=== PATIENT | female | born 1990 | race Hispanic/Latino ===

== ENCOUNTER 2019-04-15 07:14 | Emergency (ER) | payer OTHER ==
[2019-04-15] MEDS ORDERED: NA CHLORIDE 0.9% 1,000 ML ONE (08:24)
[2019-04-15 08:44] LABS: Absolute Lymphocytes (CBC) 2.1 K/uL (0.7-4.9); Basophils % 0.5 % (0-1.3); Hematocrit 32.8 % (36.0-45.0); Lymphocytes % 24.3 % (15.3-44.8); MPV 9.5 fL (7.6-11.3)
[2019-04-15 08:59] LABS: ALT/SGPT 17 U/L (12-78); AST/SGOT 12 U/L (15-37); Albumin 2.8 g/dL (3.4-5.0); Alkaline Phosphatase 44 U/L (45-117); BUN Blood Urea Nitrogen 13 mg/dL (7-18); Bicarbonate 25 mmol/L (21-32); Bilirubin Direct 0.1 mg/dL (0-0.2); Bilirubin Total 0.3 mg/dL (0.2-1.0); Glucose Level 81 mg/dL (74-106); Lipase 133 U/L (73-393); Potassium 3.5 mmol/L (3.5-5.1); Protein, Total 6.2 g/dL (6.4-8.2); Sodium Level 140 mmol/L (136-145)
[2019-04-15 09:22] LABS: Urine Blood NEGATIVE (NEG); Urine Glucose NEGATIVE (NEG); Urine Protein NEGATIVE (NEG)
--- NOTE | 2019-04-15 09:56 | EDPHYS ---
Physician Documentation [facility] Name: Sari Sparks Age: 28 yrs Sex: Female : 1990 Arrival Date: 04/15/2019 Time: 07:16 Bed Ultrasound Private MD: STONEY Physician Dmitri Ryder HPI: 04/15 08:20 This 28 yrs old Female presents to ER via Ambulatory with complaints of juliano Epigastric Pain. 08:20 The patient presents with abdominal pain in the epigastric area, in the upper abdomen, juliano abdominal distention in the lower abdomen. Onset: The symptoms/episode began/occurred 1 day(s) ago. The patient presents to the emergency department with abdominal pain, of the epigastric area, right upper quadrant and left upper quadrant, nausea and vomiting, that started. The estimated gestational age is 21 weeks. BUTTON RIVETER: 08:20 2, Full Term 1, Premature 0, 0, Living 1 juliano Historical: - Allergies: 07:26 No Known Allergies; sg - Home Meds: 07:26 Vitamin Oral [Active]; sg - PMHx: 07:26 None; sg - PSHx: 07:26 None; sg - Immunization history:: Adult Immunizations up to date. - Social history:: Smoking status: Patient/guardian denies using tobacco. - Ebola Screening: : Patient negative for fever greater than or equal to 101.5 degrees Fahrenheit, and additional compatible Ebola Virus Disease symptoms Patient denies exposure to infectious person Patient denies travel to an Ebola-affected area in the 21 days before illness onset No symptoms or risks identified at this time. - Family history:: not pertinent. ROS: 08:20 Constitutional: Negative for fever, chills, and weight loss, Eyes: Negative for injury, juliano pain, redness, and discharge, ENT: Negative for injury, pain, and discharge, Neck: Negative for injury, pain, and swelling, Cardiovascular: Negative for chest pain, palpitations, and edema, Respiratory: Negative for shortness of breath, cough, wheezing, and pleuritic chest pain, Back: Negative for injury and pain, : Negative for injury, bleeding, discharge, and swelling, MS/Extremity: Negative for injury and deformity, Skin: Negative for injury, rash, and discoloration, Neuro: Negative for headache, weakness, numbness, tingling, and seizure, Psych: Negative for depression, anxiety, suicide ideation, homicidal ideation, and hallucinations, Allergy/Immunology: Negative for hives, rash, and allergies, Endocrine: Negative for neck swelling, polydipsia, polyuria, polyphagia, and marked weight changes, Hematologic/Lymphatic: Negative for swollen nodes, abnormal bleeding, and unusual bruising. 08:20 Abdomen/GI: Positive for abdominal pain, of the epigastric area, right upper quadrant and left upper quadrant. Exam: 08:20 Constitutional: This is a well developed, well nourished patient who is awake, alert, juliano and in no acute distress. Head/Face: Normocephalic, atraumatic. Eyes: Pupils equal round and reactive to light, extra-ocular motions intact. Lids and lashes normal. Conjunctiva and sclera are non-icteric and not injected. Cornea within normal limits. Periorbital areas with no swelling, redness, or edema. ENT: Nares patent. No nasal discharge, no septal abnormalities noted. Tympanic membranes are normal and external auditory canals are clear. Oropharynx with no redness, swelling, or masses, exudates, or evidence of obstruction, uvula midline. Mucous membranes moist. Neck: Trachea midline, no thyromegaly or masses palpated, and no cervical lymphadenopathy. Supple, full range of motion without nuchal rigidity, or vertebral point tenderness. No Meningismus. Chest/axilla: Normal chest wall appearance and motion. Nontender with no deformity. No lesions are appreciated. Cardiovascular: Regular rate and rhythm with a normal S1 and S2. No gallops, murmurs, or rubs. Normal PMI, no JVD. No pulse deficits. Respiratory: Lungs have equal breath sounds bilaterally, clear to auscultation and percussion. No rales, rhonchi or wheezes noted. No increased work of breathing, no retractions or nasal flaring. Back: No spinal tenderness. No costovertebral tenderness. Full range of motion. Female : Normal external genitalia. Skin: Warm, dry with normal turgor. Normal color with no rashes, no lesions, and no evidence of cellulitis. MS/ Extremity: Pulses equal, no cyanosis. Neurovascular intact. Full, normal range of motion. Neuro: Awake and alert, GCS 15, oriented to person, place, time, and situation. Cranial nerves II-XII grossly intact. Motor strength 5/5 in all extremities. Sensory grossly intact. Cerebellar exam normal. Normal gait. Psych: Awake, alert, with orientation to person, place and time. Behavior, mood, and affect are within normal limits. 08:20 Abdomen/GI: Inspection: distension, that is mild, gravid appearance, is noted, Bowel sounds: normal, Liver: no appreciated palpable abnormalities, Hernia: not appreciated. Vital Signs: 07:24 BP 102 / 63; Pulse 89; Resp 16; Temp 97.9(O); Pulse Ox 100% ; Pain 0/10; dh3 MDM: 07:38 Patient medically screened. [facility] 08:22 Data reviewed: vital signs, nurses notes, lab test result(s), radiologic studies, [facility] ultrasound. 04/15 08:19 Order name: Basic Metabolic Panel; Complete Time: 09:53 [facility] 04/15 08:19 Order name: CBC with Diff; Complete Time: 09:53 [facility] 04/15 08:19 Order name: Creatinine for Radiology; Complete Time: 09:53 [facility] 04/15 08:19 Order name: Hepatic Function; Complete Time: 09:53 [facility] 04/15 08:19 Order name: Lipase; Complete Time: 09:53 [facility] 04/15 08:19 Order name: Abo/rh Typing; Complete Time: 09:53 [facility] 04/15 08:19 Order name: IV Saline Lock; Complete Time: 08:33 [facility] 04/15 08:19 Order name: Labs collected and sent; Complete Time: 08:33 [facility] 04/15 08:19 Order name: US Abdomen Limited [facility] 04/15 08:41 Order name: Urine Dipstick--Ancillary (enter results); Complete Time: 09:53 04/15 08:41 Order name: Urine --Ancillary (enter results); Complete Time: 09:53 04/15 08:19 Order name: NPO; Complete Time: 08:20 [facility] 04/15 08:19 Order name: Urine Dipstick-Ancillary (obtain specimen); Complete Time: 08:41 [facility] 04/15 08:19 Order name: Urine Test (obtain specimen); Complete Time: 08:41 [facility] 04/15 08:19 Order name: FHT's; Complete Time: 10:45 [facility] Administered Medications: 09:00 Drug: NS 0.9% 1000 ml Route: IV; Rate: 1 bolus; Site: right antecubital; sg 10:24 Drug: Rocephin 1 grams Route: IV; Rate: per protocol; Site: right antecubital; sg Disposition: 04/15/19 09:55 Discharged to Home. Impression: Abdominal tenderness, Cholelithiasis, Urinary tract infection, site not specified. - Condition is Stable. - Discharge Instructions: Abdominal Pain, Adult, Abdominal Pain During , Biliary Colic, Adult, Urinary Tract Infection, Adult, Urinary Tract Infection, Adult, Ykut-za-Ymtk, Abdominal Pain, Adult, Qobx-nd-Xhlg, Abdominal Pain During , Hbyp-vw-Hxog, Second Trimester of , Aafb-jw-Yiyy. - Prescriptions for Vitamin 27- 0.8 mg Oral Tablet - take 1 tablet by ORAL route once daily; 30 tablet. Macrobid 100 mg Oral Capsule - take 1 capsule by ORAL route every 12 hours for 7 days; 14 capsule. - Medication Reconciliation Form, Thank You Letter, Antibiotic Education, Prescription Opioid Use form. - Follow up: Private Physician; When: 2 - 3 days; Reason: Recheck today's complaints, Continuance of care, Re-evaluation by your physician. Follow up: Vito Rothman; When: 2 - 3 days; Reason: Recheck today's complaints, Continuance of care, Re-evaluation by your physician. - Problem is new. - Symptoms have improved. Signatures: Dispatcher [employer] EDMS Alex Lr RN RN sg Anderson, Corey, MD MD cha Corrections: (The following items were deleted from the chart) 11:30 09:55 04/15/2019 09:55 Discharged to Home. Impression: Abdominal tenderness; sg Cholelithiasis; Urinary tract infection, site not specified. Condition is Stable. Discharge Instructions: Abdominal Pain, Adult, Abdominal Pain During , Biliary Colic, Adult, Abdominal Pain, Adult, Zxnn-ix-Dvpl, Abdominal Pain During , Brwn-uy-Prjm, Second Trimester of , Ybrj-so-Tatj. Prescriptions for Vitamin 27-0.8 mg Oral Tablet - take 1 tablet by ORAL route once daily; 30 tablet. and Forms are Medication Reconciliation Form, Thank You Letter, Antibiotic Education, Prescription Opioid Use. Follow up: Private Physician; When: 2 - 3 days; Reason: Recheck today's complaints, Continuance of care, Re-evaluation by your physician. Follow up: Vito Rothman; When: 2 - 3 days; Reason: Recheck today's complaints, Continuance of care, Re-evaluation by your physician. Problem is new. Symptoms have improved. juliano
--- NOTE | 2019-04-15 09:56 | ER ---
Nurse's Notes [facility] Name: Sari Sparks Age: 28 yrs Sex: Female : 1990 Arrival Date: 04/15/2019 Time: 07:16 Bed Ultrasound Private MD: Diagnosis: Abdominal tenderness;Cholelithiasis;Urinary tract infection, site not specified Presentation: 04/15 07:23 Presenting complaint: Patient states: Epigastric pain that radiates to the right upper sg back, reports pain began this morning, but has resolved as walking from ER lobby to exam room. pt denies urinary/vaginal symptoms at this time, reports is 21 weeks , reports nausea with the pain but both symptoms have resolved at this time. Transition of care: patient was not received from another setting of care. Onset of symptoms was April 15, 2019. Risk Assessment: Do you want to hurt yourself or someone else? Patient reports no desire to harm self or others. Initial Sepsis Screen: Does the patient meet any 2 criteria? No. Patient's initial sepsis screen is negative. Does the patient have a suspected source of infection? No. Patient's initial sepsis screen is negative. Care prior to arrival: None. 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 - Social history:: Smoking status: Patient/guardian denies using tobacco. - Ebola Screening: : Patient negative for fever greater than or equal to 101.5 degrees Fahrenheit, and additional compatible Ebola Virus Disease symptoms Patient denies exposure to infectious person Patient denies travel to an Ebola-affected area in the 21 days before illness onset No symptoms or risks identified at this time. - Family history:: not pertinent. Screenin:26 Abuse screen: Denies threats or abuse. Denies injuries from another. Nutritional sg screening: No deficits noted. Tuberculosis screening: No symptoms or risk factors identified. Never had TB. Fall Risk None identified. Assessment: 07:26 General: Appears in no apparent distress. well groomed, well developed, well nourished, sg Behavior is calm, cooperative, appropriate for age. Pain: Complains of pain in right mid back, right upper quadrant and left upper quadrant Pain currently is 0 out of 10 on a pain scale. at worst was 9 out of 10 on a pain scale. Quality of pain is described as aching, Pain began gradually, Is episodic, lasting 30 minutes. Neuro: Level of Consciousness is awake, alert, obeys commands, Oriented to person, place, time, Mine Car Mechanic are equal bilaterally Moves all extremities. Full function Gait is steady, Speech is normal, Facial symmetry appears normal, Pupils are PERRLA, Denies weakness blurred vision dizziness, difficulty swallowing, paresthesias numbness headache photophobia diplopia. Cardiovascular: Capillary refill is brisk in bilateral fingers Patient's skin is warm and dry. Chest pain is denied. Respiratory: Airway is patent Respiratory effort is even, unlabored, Respiratory pattern is regular, symmetrical. GI: Abdomen is round non-distended, Bowel sounds. GI: Reports nausea, tolerance of fluids, tolerance of food. : No signs and/or symptoms were reported regarding the genitourinary system. EENT: No signs and/or symptoms were reported regarding the EENT system. Derm: Skin is pink, warm \T\ dry. Musculoskeletal: Circulation, motion, and sensation intact. Range of motion: intact in all extremities, Swelling absent. Vital Signs: 07:24 BP 102 / 63; Pulse 89; Resp 16; Temp 97.9(O); Pulse Ox 100% ; Pain 0/10; dh3 ED Course: 07:16 Patient arrived in ED. as 07:19 Alex Lr, RN is Primary Nurse. sg 07:20 Mo Silva PA is PHCP. jmm 07:20 David Powers MD is Attending Physician. jmm 07:20 Awaiting ED provider evaluation. sg 07:24 Triage completed. sg 07:24 Arm band placed on. sg 07:43 Attending Physician role handed off by David Powers MD juliano 07:43 Dmitri Ryder MD is Attending Physician. juliano 07:52 Awaiting ED provider evaluation. sg 08:29 Initial lab(s) drawn, by me, sent to lab. Inserted saline lock: 22 gauge in right 3 antecubital area, using aseptic technique. Blood collected. 08:54 US Abdomen Limited In Process Unspecified. EDMS 09:55 Vito Rothman MD is Referral Physician. juliano 10:45 Awaiting: IV fluids and IV abx to finish infusing at this time. sg Administered Medications: 09:00 Drug: NS 0.9% 1000 ml Route: IV; Rate: 1 bolus; Site: right antecubital; sg 10:24 Drug: Rocephin 1 grams Route: IV; Rate: per protocol; Site: right antecubital; sg Outcome: :55 Discharge ordered by . juliano 11:30 Patient left the ED. sg Signatures: Dispatcher [employer] EDMS Alex Lr RN RN sg Anderson, Corey, MD MD cha Mickail, Joel, PA PA jmm Martinez, Amelia as Herrera, [place] [id number]
[2019-04-15] MEDS ORDERED: CEFTRIAXONE/SWI 1gm 1 GM/10 ML SYR ONE (10:22)
--- NOTE | 2019-04-15 11:13 | RAD REPORT ---
EXAM DESCRIPTION: US - Abdomen Exam Limited - 04/15/2019 8:53 am CLINICAL HISTORY: ABD PAIN COMPARISON: No comparisons FINDINGS: The gallbladder demonstrates multiple shadowing gallstones. No pericholecystic fluid or ga llbladder wall thickening. The common bile duct is normal measuring 4 mm. The liver demonstrates no findings of intrahepatic biliary dilatation. IMPRESSION: Cholelithiasis.
[2019-04-15 11:36] VITALS: BP 102/63; TEMP 97.9; O2SAT 100
== END 2019-04-15 11:30 | disposition home or self-care (01) ==
LOC: ER 07:14
DX: O23.42 Unspecified infection of urinary tract in pregnancy, second trimester (principal); K80.20 Calculus of gallbladder without cholecystitis without obstruction; Z3A.21 21 weeks gestation of pregnancy
CPT/HCPCS: 85025; 80048; 36415; 86900; 81025; 86901; 80076; 81003; 83690; 76705; 96374; 99284; J0696; J7030

== ENCOUNTER 2021-06-01 14:31 | Emergency (ER) | payer OTHER ==
--- OUTSIDE RECORDS SUMMARY | 2021-06-01 14:37 | XMS REPORT | Continuity of Care Document ---
:1990 Author Organization [facility] t Address [address] [place] [address] Dr. Gonzales [address] [place] [id number] Care Team Providers Name Role Phone CHERIE NAVA Attending Clinician Unavailable Alena Ledesma Attending Clinician Pete Salinas MD Attending Clinician Doctor Unassigned, Name Attending Clinician Unavailable Nerissa Green Attending Clinician Leo Morales MD Attending Clinician Popeye MEDELLIN Attending Clinician Unavailable Lab Attending Clinician Unavailable Nerissa Mcgovern Attending Clinician 2, [facility] Room Attending Clinician Unavailable Alia Palomino MD Attending Clinician Lab Attending Clinician Unavailable Pete Salinas MD Admitting Clinician Leo Morales MD Admitting Clinician Payers Payer Name Policy Type Policy Number Effective Date Expiration Date [facility] [id number] [address] [facility] MEDICAID 00:00:00 Advance Directives Directive Decision Effective Termination Comments Source Date Date Healthcare Agents on N/A [facility] Agent Medical RelationshipCommunicationSabina Branch [facility]end[facility] healthcare [phone] (Mobile) Problems Condition Condition Condition Status Onset Resolution Last Treating Co mments Source Name Details Category Date Date Treatment Clinician Date Other Other Disease Active 2019-0 Univers general general 4-16 ity of counseling [place] and advice and advice 00 Me dical for for Branch contracept contracept memo memo management management Disease Active 2019-0 U nivers care and care and 3-06 ity of examinatio examinatio 00:[place] n of n of 00 Medical lactating lactating Bran ch mother mother Disease Active 2019- Univers (spontaneo (spontaneo 2-15 it y of us vaginal us vaginal 00:00: [place] delivery) delivery) 00 [facility] Single Single Disease Active 2020- Univers liveborn liveborn 2-15 ity of infant 00:00: [place] [facility] Branch Labor and Labor and Disease Active 2019- Uni vers delivery delivery 2-14 ity of indication indication 00:00[place] for care for care 00 Medica l or or Branch interventi interventi on on Upper Upper Disease Active 2019- Univers respirator respirator 2-10 it y of y symptom y symptom [place] Obesity Obesity Disease Active 2019- Univers (BMI (BMI 2-03 ity of 30-39.9) 30-39.9) 00:00: [place] [facility] UTI UTI Disease Active 2019 Overview: Univer s (urinary (urinary 8 Nicole neg ity o f tract tract 00:00: [place] infection) infection) 00 Me dical during during [place] Supervisio Supervisio Disease Active 2019- U nivers n of n of 7-29 ity of high-risk high-risk 00:[place] [facility] Multiparit Multiparit Disease Active 2019-0 U nivers y y 7-29 ity of 00:00: [place] [facility] History of History of Disease Active 2019- Overview : Univers oligohydra oligohydra 7-29 In it y of mnios mnios 00:00: previous Medical Branch Obesity in Obesity in Disease Active 2019-0 U nivers 7-29 ity of 00:00: Medical Branch Nausea and Nausea and Disease Active 2019-0 U nivers vomiting vomiting 7-29 ity of during during 00:00: [place] 00 [facility] prior to prior to [place] 22 weeks 22 weeks gestation gestation Supervisio Supervisio Disease Active 2015-07 U nivers n of other n of other 0-13 it y of high risk high risk 00:[place] , , 00 Me dical antepartum antepartum Br anch , second , second trimester trimester Nonspecifi Nonspecifi Disease Active Overview : Univers c c 03-08 Indetermi ity of serologic serologic 00:00: regi [place] evidence evidence [facility] human of human Blot--[facility] immunodefi immunodefi t likely ciency ciency false virus virus positive, (HIV) (HIV) but needs repeat testing in 1mo, 3 mo, 32 weeks, and 1 month postpartu m. Viral Viral Disease Active Overview: Univer s disease disease 03-08 Had ity of complicati complicati 00:00: travel to [place] ng ng 00 [place] in Medical 1st Bran ch in first in first trimester trimester, trimester, . Denies antepartum antepartum all s/s of Zika virus with the exception of an occasiona l headache with no change in frequency , severity, duration or type since before or travel. Not persisten t and resolved spontaneo usly. Mosquito-b Mosquito-b Disease Active U nivers orne viral orne viral 03-08 it y of fever fever 00:00: [place] 00 Medical Branch History of History of Disease Active Overview : Univers foreign foreign 03-01 Travel to [facility] o f travel travel 00:00: [place] in [place] 00 1st Medical trimester Branch , needs serial scans Screening Screening Disease Active Uni vers examinatio examinatio 03-01 it y of n for n for 00:00: [place] pulmonary pulmonary 00 Medi kobe tuberculos tuberculos Br anch is is Allergies, Adverse Reactions, Alerts Allergy Allergy Status Severity Reaction(s) Onset Inactive Treating Comm ents Source Name Type Date Date Clinician NO KNOWN Drug Active Univers ALLERGIE Class ity of S [place] [facility] [place] Social History Social Habit Start Date Stop Date Quantity Comments Source ASSERTION 2018-11-30 [facility] 00:00:00 Medical Branch Sex Assigned At [facility] Medical Branch Alcohol intake 2019-10-17 2019-10-17 [facility] 00:00:00 00:00:00 Medical Branch Smoking Status Start Date Stop Date Source Never smoker [facility] acute hospital Branch Medications Ordered Filled Start Stop Current Ordering Indication Dosage Frequency Signature Comments Components Source Medication Medication Date Date Medication? Clinician (SIG) Name Name noe Yes [id number] 1{tbl} Take 1 Univers ne 0.35 mg 3-27 tablet by ity of tablet 00:00: mouth [place] 00 daily. Medical Branch norethindro 2020-0 Yes [id number] 1{tbl} Take 1 Univers ne 0.35 mg 3-27 tablet by ity of tablet 00:00: mouth [place] 00 daily. Medical Branch rho(D) 2019-0 Yes 300ug 300 mcg, Univer s immune 2-15 Intramuscu ity of globulin 04:12: lar, ONCE, [place] (RHOGAM) 07 For 1 Medical syringe 300 dose, Branch mcg Conditiona l, Routine ondansetron 2019-0 Yes 4mg 4 mg, Slow Univers (ZOFRAN 2-15 IV Push, ity of (PF)) 04:12: Q8HPRN, [place] injection 4 03 Starting Medi kobe mg Fri Branch 08/16/19 at 2211, Until Discontinu ed, Routine, Nausea and Vomiting (N/V) simethicone 2020-0 Yes 160mg 160 mg, Un matthew (GAS RELIEF 2-15 Oral, ity of (SIMETHICON 04:12: PC+HSPRN, [place] E)) 03 Starting Medical chewable Fri Branch tablet 160 08/16/19 at mg 2, Until Discontinu ed, Routine, Gas magnesium 2020-0 Yes 30mL 30 mL, Univer s hydroxide 2-15 Oral, ity of (MILK OF 04:12: QDAILYPRN, [place] MAGNESIA) 03 Starting Medica l 400 mg/5 mL Fri Branch suspension 08/16/19 at 30 mL 2211, Until Discontinu ed, Routine, Constipati on human 2019-0 Yes .5mL 0.5 mL, Univers papillomav 2-15 Intramuscu ity of vac,9-devi(P 04:12: lar, [place] F) 02 ONCE-PRIOR Medical (GARDASIL-9 TO Branch ) syringe DISCHARGE, 0.5 mL 1 dose, Starting 08/16/19 at 2, Until Discontinu ed, Routine, Give vaccine prior to discharge ibuprofen 2020-0 Yes 600mg 600 mg, Univ ers (IBU) 2-15 Oral, ity of tablet 600 04:12: Q6HPRN, [place] mg 02 Starting Medical Fri Branch 08/16/19 at 2, Until Discontinu ed, Routine, Pain (scale 4-6) acetaminoph 2020-0 Yes 650mg 650 mg, Un matthew en 2-15 Oral, ity of (TYLENOL) 04:12: Q6HPRN, [place] tablet 650 02 Starting Medic al mg Mon Branch 08/16/19 at 2212, Until Discontinu ed, Routine, Pain (scale 1-3) diphenhydrA 2020-0 Yes 25mg 25 mg, Univ ers MINE 2-15 Oral, ity of (BENADRYL) 04:12: Q6HPRN, [place] tablet 25 02 Starting Medica l mg Mon Branch 08/16/19 at 2212, Until Discontinu ed, Routine, Sleep, Itching diphenhydrA 2020-0 Yes 25mg 25 mg, IV U nivers MINE-0.9 % 2-15 Piggyback, ity of sod.chlr 04:12: Administer [place] (BENADRYL) 02 over 30 Medica l 25 mg/50 mL Minutes, Bran ch piggyback Q6HPRN, 25 mg Starting Mon08/16/19 at 2212, Until Discontinu ed, Routine, Itching docusate 2020-0 Yes 240mg 240 mg, Unive rs calcium 2-15 Oral, ity of (SURFAK) 04:12: QDAILYPRN, [place] capsule 240 02 Starting Medi kobe mg Mon [place] 08/16/19 at 2212, Until Discontinu ed, Routine, Constipati on benzocaine- 2020-0 Yes Topical, Un matthew menthol 2-15 PRN, ity of (DERMOPLAST 04:12: Starting [place] ) 20-0.5 % 02 Mon Medical topical 08/16/19 at Branch spray 2212, Until Discontinu ed, Routine, Perineum discomfort LR 1000 mL 2020-0 2020- No at 999 Univ ers + oxytocin 2-15 02-15 mL/hr, IV ity of 20 units IV 01:45: 01:05 Infusion, [place] Solution 00 :00 ONCE, 1 Medical dose, Mon [place] 08/16/19 at 1945, Routine acetaminoph 2020-0 Yes 650mg 650 mg, Un matthew en 2-15 Oral, ity of (TYLENOL) 00:44: Q6HPRN, [place] tablet 650 46 Starting Medic al mg Mon [place] 08/16/19 at 1844, Until Discontinu ed, Routine, Pain (scale 1-3), Temp > 38.5 C 2020-0 Yes [id number] 1{tbl} Take 1 Univers vitamin 2-15 tablet by ity of w/FA tablet 00:00: mouth [place] 00 daily. Medical Branch docusate 2020-0 Yes [id number] 240mg Take 1 U nivers calcium 240 2-15 capsule by it y of mg capsule 00:00: mouth once [place] 00 daily as Medical needed for Branch Constipati on. ferrous 2020-0 Yes [id number] 325mg Take 1 Un matthew sulfate 325 2-15 tablet by ity of mg (65 mg 00:00: mouth 2 [place] iron) 00 (two) Medical tablet times Branch daily. ibuprofen 2020-0 Yes [id number] 600mg Take 1 Univers 600 mg 2-15 tablet by ity of tablet 00:00: mouth [place] 00 every 6 Medical (six) Branch hours as needed (Pain). Take with food or milk. 2020-0 Yes [id number] 1{tbl} Take 1 Univers vitamin 2-15 tablet by ity of w/FA tablet 00:00: mouth [place] 00 daily. Medical Branch docusate 2020-0 Yes [id number] 240mg Take 1 U nivers calcium 240 2-15 capsule by it y of mg capsule 00:00: mouth once [place] 00 daily as Medical needed for Branch Constipati on. ferrous 2020-0 Yes [id number] 325mg Take 1 Un matthew sulfate 325 2-15 tablet by ity of mg (65 mg 00:00: mouth 2 [place] iron) 00 (two) Medical tablet times Branch daily. ibuprofen 2020-0 Yes [id number] 600mg Take 1 Univers 600 mg 2-15 tablet by ity of tablet 00:00: mouth [place] 00 every 6 Medical (six) Branch hours as needed (Pain). Take with food or milk. 2020-0 Yes [id number] 1{tbl} Take 1 Univers vitamin 2-15 tablet by ity of w/FA tablet 00:00: mouth [place] 00 daily. Medical Branch docusate 2020-0 Yes [id number] 240mg Take 1 U nivers calcium 240 2-15 capsule by it y of mg capsule 00:00: mouth once [place] 00 daily as Medical needed for Branch Constipati on. ferrous 2020-0 Yes [id number] 325mg Take 1 Un matthew sulfate 325 2-15 tablet by ity of mg (65 mg 00:00: mouth 2 [place] iron) 00 (two) Medical tablet times Branch daily. ibuprofen 2020-0 Yes [id number] 600mg Take 1 Univers 600 mg 2-15 tablet by ity of tablet 00:00: mouth [place] 00 every 6 Medical (six) Branch hours as needed (Pain). Take with food or milk. 2020-0 Yes [id number] 1{tbl} Take 1 Univers vitamin 2-15 tablet by ity of w/FA tablet 00:00: mouth [place] 00 daily. Medical Branch docusate 2020-0 Yes [id number] 240mg Take 1 U nivers calcium 240 2-15 capsule by it y of mg capsule 00:00: mouth once [place] 00 daily as Medical needed for Branch Constipati on. ferrous 2020-0 Yes [id number] 325mg Take 1 Un matthew sulfate 325 2-15 tablet by ity of mg (65 mg 00:00: mouth 2 [place] iron) 00 (two) Medical tablet times Branch daily. ibuprofen 2020-0 Yes [id number] 600mg Take 1 Univers 600 mg 2-15 tablet by ity of tablet 00:00: mouth [place] 00 every 6 Medical (six) Branch hours as needed (Pain). Take with food or milk. 2020-0 Yes [id number] 1{tbl} Take 1 Univers vitamin 2-15 tablet by ity of w/FA tablet 00:00: mouth [place] 00 daily. Medical Branch docusate 2020-0 Yes [id number] 240mg Take 1 U nivers calcium 240 2-15 capsule by it y of mg capsule 00:00: mouth once [place] 00 daily as Medical needed for Branch Constipati on. ferrous 2020-0 Yes [id number] 325mg Take 1 Un matthew sulfate 325 2-15 tablet by ity of mg (65 mg 00:00: mouth 2 [place] iron) 00 (two) Medical tablet times Branch daily. ibuprofen 2020-0 Yes [id number] 600mg Take 1 Univers 600 mg 2-15 tablet by ity of tablet 00:00: mouth [place] 00 every 6 Medical (six) Branch hours as needed (Pain). Take with food or milk. lactated 2019-0 2020- No 500mL at 999 Unive rs ringers IV 2-15 02-14 mL/hr, 500 it y of infusion 00:00: 23:14 mL, IV [place] 500 mL 00 :00 Infusion, Medical ONCE, 1 Branch dose, 08/16/19 at 1800, Routine FENTanyl PF 2020-0 2020- No 50ug 50 mcg, Un matthew (SUBLIMAZE 08-16 Slow IV ity o f (PF)) 23:45: 22:43 Push, [place] injection 00 :00 ONCE, 1 Medical 50 mcg dose, Fri Branch 08/16/19 at 1745, Routine LR 1000 mL 2020-0 Yes 2mU/min 2 Univ ers + oxytocin 2-14 tony-unit ity of 20 units IV 22:52: s/min (6 [place] Solution 49 mL/hr), at Medic al 6 mL/hr, Branch IV Infusion, TITRATE, Starting Mon08/16/19 at 1652, Until Discontinu ed, DIANE, Oxytocin Induction / Augmentati on of Labor. lactated 2020-0 Yes 500mL at 999 Univer s ringers IV 2-14 mL/hr, 500 ity of infusion 22:52: mL, IV [place] 500 mL 48 Infusion, Medical PRN - SEE Branch INSTRUCTIO NS, 1 dose, Starting 08/16/19 at 1652, Until Discontinu ed, Routine sodium 2020-0 2020- No 30mL 30 mL, Univers citrate-cit 08-16 Oral, ity of mone acid 22:52: 23:19 PRE-PROCED [place] (BICITRA) 48 :00 URE ONCE, Medic al 500-334 1 dose, Branch mg/5 mL Starting solution 30 Fri mL 08/16/19 at 1652, Until 08/16/19 at 1719, Routine, Surgery/Pr ocedure miSOPROStol 2020-0 2020- No 25ug 25 mcg, Un matthew (CYTOTEC) 08-16 Vaginal, ity o f tablet 25 15:30: 16:31 ONCE, 1 [place] mcg 00 :00 dose, Fri Medical 08/16/19 at Branch 0930, Routine D5W-LR IV 2020-0 Yes 1000mL at 125 Univ ers infusion 2-14 mL/hr, IV ity of 1,000 mL 13:45: Infusion, [place] 00 CONTINUOUS Medical , Starting Branch 08/16/19 at 0745, Until Discontinu ed, Routine sodium 2020-0 Yes 30mL 30 mL, Univers citrate-cit 2-14 Oral, ity of mone acid 13:38: PRE-PROCED [place] (BICITRA) 46 URE ONCE, Medic al 500-334 1 dose, Branch mg/5 mL Starting solution 30 Fri mL 08/16/19 at 0738, Until Discontinu ed, Routine, Surgery/Pr ocedure sodium 2020-0 Yes 30mL 30 mL, Univers citrate-cit 2-14 Oral, ity of mone acid 13:38: PRE-PROCED [place] (BICITRA) 46 URE ONCE, Medic al 500-334 1 dose, Branch mg/5 mL Starting solution 30 Fri mL 08/16/19 at 0738, Until Discontinu ed, Routine, Surgery/Pr ocedure lidocaine 2020-0 Yes 50mL 50 mL, Univer s 1% 2-14 Infiltrati ity of (XYLOCAINE) 13:38: on, PRN - [place] 10 mg/mL (1 46 SEE Medical %) INSTRUCTIO Branch injection NS, 50 mL Starting Mon08/16/19 at 0738, Until Discontinu ed, Routine, Local anesthesia , For laceration repair only as a local anesthetic as indicated. lidocaine 2020-0 Yes .3mL 0.3 mL, Unive rs 1% (PF) 2-14 Infiltrati ity of (XYLOCAINE) 13:38: on, PRN - [place] injection 46 SEE Medical 0.3 mL INSTRUCTIO Branch NS, Starting Mon08/16/19 at 0738, Until Discontinu ed, Routine, Local anesthesia , For IV line placement only as a local anesthetic . lactated 2020-0 Yes 500mL at 999 Univer s ringers IV 2-14 mL/hr, 500 ity of infusion 13:38: mL, IV [place] 500 mL 46 Infusion, Medical PRN - SEE Branch INSTRUCTIO NS, Starting Mon08/16/19 at 0738, Until Discontinu ed, Routine doxylamine- 2019-0 Yes [id number] 2{tbl} Take 2 Univers pyridoxine, 8-26 tablets by it y of vit B6, 00:00: mouth at [place] ([place]) 00 bedtime. Medic al 10-10 mg Branch per tablet doxylamine- 2019-0 Yes [id number] 2{tbl} Take 2 Univers pyridoxine, 8-26 tablets by it y of vit B6, 00:00: mouth at [place] [address] bedtime. Medic al 10-10 mg Branch per tablet doxylamine- 2019-0 Yes [id number] 2{tbl} Take 2 Univers pyridoxine, 8-26 tablets by it y of vit B6, 00:00: mouth at [place] [address] bedtime. Medic al 10-10 mg Branch per tablet doxylamine- 2019-0 Yes [id number] 2{tbl} Take 2 Univers pyridoxine, 8-26 tablets by it y of vit B6, 00:00: mouth at [place] [address] bedtime. Medic al 10-10 mg Branch per tablet doxylamine- 2019-0 Yes [id number] 2{tbl} Take 2 Univers pyridoxine, 8-26 tablets by it y of vit B6, 00:00: mouth at [place] [address] bedtime. Medic al 10-10 mg Branch per tablet doxylamine- 2019-0 Yes [id number] 2{tbl} Take 2 Univers pyridoxine, 8-26 tablets by it y of vit B6, 00:00: mouth at [place] [address] bedtime. Medic al 10-10 mg Branch per tablet doxylamine- 2019-0 Yes [id number] 2{tbl} Take 2 Univers pyridoxine, 8-26 tablets by it y of vit B6, 00:00: mouth at [place] [address] bedtime. Medic al 10-10 mg Branch per tablet doxylamine- 2019-0 Yes [id number] 2{tbl} Take 2 Univers pyridoxine, 8-26 tablets by it y of vit B6, 00:00: mouth at [place] [address] bedtime. Medic al 10-10 mg Branch per tablet doxylamine- 2019-0 Yes [id number] 2{tbl} Take 2 Univers pyridoxine, 8-26 tablets by it y of vit B6, 00:00: mouth at [facility] 00 bedtime. Medic al 10-10 mg Branch per tablet doxylamine- 2019-0 Yes [id number] 2{tbl} Take 2 Univers pyridoxine, 8-26 tablets by it y of vit B6, 00:00: mouth at [place] ([place]) 00 bedtime. Medic al 10-10 mg Branch per tablet doxylamine- Yes [id number] 2{tbl} Take 2 Univers pyridoxine, 8-26 tablets by it y of vit B6, 00:00: mouth at [place] ([facility]) 00 bedtime. Medic al 10-10 mg Branch per tablet doxylamine- 2020- No [id number] 2{tbl} Take 2 Univers pyridoxine, 8-26 02-15 tablets by i ty of vit B6, 00:00: 00:00 mouth at [place] ([facility]) 00 :00 bedtime. Medic al 10-10 mg Branch per tablet amoxicillin 2019- No [id number] 500mg Take 1 Univers 500 mg 8- 08-09 tablet by ity of tablet 00:00: 04:59 mouth 3 [place] 00 :00 (three) Medical times Branch daily for 7 days. amoxicillin 2019- No [id number] 500mg Take 1 Univers 500 mg 8- 08-09 tablet by ity of tablet 00:00: 04:59 mouth 3 [place] 00 :00 (three) Medical times Branch daily for 7 days. amoxicillin 2019- No [id number] 500mg Take 1 Univers 500 mg 8- 08-09 tablet by ity of tablet 00:00: 04:59 mouth 3 [place] 00 :00 (three) Medical times Branch daily for 7 days. amoxicillin 2019- No [id number] 500mg Take 1 Univers 500 mg 8- 08-09 tablet by ity of tablet 00:00: 04:59 mouth 3 [place] 00 :00 (three) Medical times Branch daily for 7 days. Yes [id number] 1{tbl} Take 1 U nivers 48-iron-fol 7-29 tablet by ity of ic acid-B6 00:00: mouth [place] ([facility] 00 daily. Medica l B-CALM, FE Branch GLUC,) 20 mg iron-1 mg -25 mg/25 mg TbSQ doxylamine- Yes [id number] 2{tbl} Take 2 Univers pyridoxine, 7-29 tablets by it y of vit B6, 00:00: mouth at [place] ([facility]) 00 bedtime. Medic al 10-10 mg Branch per tablet 2019-0 Yes [id number] 1{tbl} Take 1 U nivers 48-iron-fol 7-29 tablet by ity of ic acid-B6 00:00: mouth [place] ([facility] 00 daily. Medica l B-CALM, FE Branch GLUC,) 20 mg iron-1 mg -25 mg/25 mg TbSQ doxylamine- 2019-0 Yes [id number] 2{tbl} Take 2 Univers pyridoxine, 7-29 tablets by it y of vit B6, 00:00: mouth at [place] ([facility]) 00 bedtime. Medic al 10-10 mg Branch per tablet 2019-0 Yes [id number] 1{tbl} Take 1 U nivers 48-iron-fol 7-29 tablet by ity of ic acid-B6 00:00: mouth [place] ([facility] 00 daily. Medica l B-CALM, FE Branch GLUC,) 20 mg iron-1 mg -25 mg/25 mg TbSQ doxylamine- 2019- Yes [id number] 2{tbl} Take 2 Univers pyridoxine, 7-29 tablets by it y of vit B6, 00:00: mouth at [place] ([facility]) 00 bedtime. Medic al 10-10 mg Branch per tablet 2019-0 Yes [id number] 1{tbl} Take 1 U nivers 48-iron-fol 7-29 tablet by ity of ic acid-B6 00:00: mouth [place] ([facility] 00 daily. Medica l B-CALM, FE Branch GLUC,) 20 mg iron-1 mg -25 mg/25 mg TbSQ doxylamine- 2019-0 Yes [id number] 2{tbl} Take 2 Univers pyridoxine, 7-29 tablets by it y of vit B6, 00:00: mouth at [place] ([facility]) 00 bedtime. Medic al 10-10 mg Branch per tablet 2019-0 Yes [id number] 1{tbl} Take 1 U nivers 48-iron-fol 7-29 tablet by ity of ic acid-B6 00:00: mouth [place] ([facility] 00 daily. Medica l B-CALM, FE Branch GLUC,) 20 mg iron-1 mg -25 mg/25 mg TbSQ doxylamine- 2019-0 Yes [id number] 2{tbl} Take 2 Univers pyridoxine, 7-29 tablets by it y of vit B6, 00:00: mouth at [place] ([facility]) 00 bedtime. Medic al 10-10 mg Branch per tablet 2019-0 Yes [id number] 1{tbl} Take 1 U nivers 48-iron-fol 7-29 tablet by ity of ic acid-B6 00:00: mouth [place] ([facility] 00 daily. Medica l B-CALM, FE Branch GLUC,) 20 mg iron-1 mg -25 mg/25 mg TbSQ doxylamine- 20190 Yes [id number] 2{tbl} Take 2 Univers pyridoxine, 7-29 tablets by it y of vit B6, 00:00: mouth at [place] ([place]) 00 bedtime. Medic al 10-10 mg Branch per tablet 2019-0 Yes [id number] 1{tbl} Take 1 U nivers 48-iron-fol 7-29 tablet by ity of ic acid-B6 00:00: mouth [place] ([facility] 00 daily. Medica l B-CALM, FE Branch GLUC,) 20 mg iron-1 mg -25 mg/25 mg TbSQ doxylamine- 2019 Yes [id number] 2{tbl} Take 2 Univers pyridoxine, 7-29 tablets by it y of vit B6, 00:00: mouth at [place] ([facility]) 00 bedtime. Medic al 10-10 mg Branch per tablet 2019-0 Yes [id number] 1{tbl} Take 1 U nivers 48-iron-fol 7-29 tablet by ity of ic acid-B6 00:00: mouth [place] ([facility] 00 daily. Medica l B-CALM, FE Branch GLUC,) 20 mg iron-1 mg -25 mg/25 mg TbSQ doxylamine- 20190 Yes [id number] 2{tbl} Take 2 Univers pyridoxine, 7-29 tablets by it y of vit B6, 00:00: mouth at [place] ([facility]) 00 bedtime. Medic al 10-10 mg Branch per tablet 2019-0 Yes [id number] 1{tbl} Take 1 U nivers 48-iron-fol 7-29 tablet by ity of ic acid-B6 00:00: mouth [place] ([facility] 00 daily. Medica l B-CALM, FE Branch GLUC,) 20 mg iron-1 mg -25 mg/25 mg TbSQ doxylamine- Yes [id number] 2{tbl} Take 2 Univers pyridoxine, 7-29 tablets by it y of vit B6, 00:00: mouth at [place] ([facility]) 00 bedtime. Medic al 10-10 mg Branch per tablet Yes [id number] 1{tbl} Take 1 U nivers 48-iron-fol 7-29 tablet by ity of ic acid-B6 00:00: mouth [place] ([facility] 00 daily. Medica l B-CALM, FE Branch GLUC,) 20 mg iron-1 mg -25 mg/25 mg TbSQ doxylamine- Yes [id number] 2{tbl} Take 2 Univers pyridoxine, 7-29 tablets by it y of vit B6, 00:00: mouth at [place] ([facility]) 00 bedtime. Medic al 10-10 mg Branch per tablet Yes [id number] 1{tbl} Take 1 U nivers 48-iron-fol 7-29 tablet by ity of ic acid-B6 00:00: mouth [place] ([facility] 00 daily. Medica l B-CALM, FE Branch GLUC,) 20 mg iron-1 mg -25 mg/25 mg TbSQ doxylamine- Yes [id number] 2{tbl} Take 2 Univers pyridoxine, 7-29 tablets by it y of vit B6, 00:00: mouth at [place] ([facility]) 00 bedtime. Medic al 10-10 mg Branch per tablet Yes [id number] 1{tbl} Take 1 U nivers 48-iron-fol 7-29 tablet by ity of ic acid-B6 00:00: mouth [place] ([facility] 00 daily. Medica l B-CALM, FE Branch GLUC,) 20 mg iron-1 mg -25 mg/25 mg TbSQ doxylamine- Yes [id number] 2{tbl} Take 2 Univers pyridoxine, 7-29 tablets by it y of vit B6, 00:00: mouth at [place] ([facility]) 00 bedtime. Medic al 10-10 mg Branch per tablet 2018- Yes [id number] 1{tbl} Take 1 U nivers 48-iron-fol 7-29 tablet by ity of ic acid-B6 00:00: mouth [place] ([facility] 00 daily. Medica l B-CALM, FE Branch GLUC,) 20 mg iron-1 mg -25 mg/25 mg TbSQ doxylamine- 2019-0 Yes [id number] 2{tbl} Take 2 Univers pyridoxine, 7-29 tablets by it y of vit B6, 00:00: mouth at [place] [facility] 00 bedtime. Medic al 10-10 mg Branch per tablet 2019-0 Yes [id number] 1{tbl} Take 1 U nivers 48-iron-fol 7-29 tablet by ity of ic acid-B6 00:00: mouth [place] ([facility] 00 daily. Medica l B-CALM, FE Branch GLUC,) 20 mg iron-1 mg -25 mg/25 mg TbSQ doxylamine- 2019-0 Yes [id number] 2{tbl} Take 2 Univers pyridoxine, 7-29 tablets by it y of vit B6, 00:00: mouth at [place] ([facility]) 00 bedtime. Medic al 10-10 mg Branch per tablet 2019-0 Yes [id number] 1{tbl} Take 1 U nivers 48-iron-fol 7-29 tablet by ity of ic acid-B6 00:00: mouth [place] ([facility] 00 daily. Medica l B-CALM, FE Branch GLUC,) 20 mg iron-1 mg -25 mg/25 mg TbSQ doxylamine- 2019-0 Yes [id number] 2{tbl} Take 2 Univers pyridoxine, 7-29 tablets by it y of vit B6, 00:00: mouth at [place] [facility] 00 bedtime. Medic al 10-10 mg Branch per tablet 2019-0 Yes [id number] 1{tbl} Take 1 U nivers 48-iron-fol 7-29 tablet by ity of ic acid-B6 00:00: mouth [place] (CITRANATAL 00 daily. Medica l B-CALM, FE Branch GLUC,) 20 mg iron-1 mg -25 mg/25 mg TbSQ doxylamine- 2019-0 Yes [id number] 2{tbl} Take 2 Univers pyridoxine, 7-29 tablets by it y of vit B6, 00:00: mouth at [place] [facility] 00 bedtime. Medic al 10-10 mg Branch per tablet 2019-0 Yes [id number] 1{tbl} Take 1 U nivers 48-iron-fol 7-29 tablet by ity of ic acid-B6 00:00: mouth [place] (CITRANATAL 00 daily. Medica l B-CALM, FE Branch GLUC,) 20 mg iron-1 mg -25 mg/25 mg TbSQ doxylamine- 2019-0 Yes [id number] 2{tbl} Take 2 Univers pyridoxine, 7-29 tablets by it y of vit B6, 00:00: mouth at [place] (DICLEGIS) 00 bedtime. Medic al 10-10 mg Branch per tablet 2019-0 Yes [id number] 1{tbl} Take 1 U nivers 48-iron-fol 7-29 tablet by ity of ic acid-B6 00:00: mouth [place] (CITRANATAL 00 daily. Medica l B-CALM, FE Branch GLUC,) 20 mg iron-1 mg -25 mg/25 mg TbSQ doxylamine- 0 Yes [id number] 2{tbl} Take 2 Univers pyridoxine, 7-29 tablets by it y of vit B6, 00:00: mouth at [place] ([facility]) 00 bedtime. Medic al 10-10 mg Branch per tablet 2019-0 Yes [id number] 1{tbl} Take 1 U nivers 48-iron-fol 7-29 tablet by ity of ic acid-B6 00:00: mouth [place] (CITRANATAL 00 daily. Medica l B-CALM, FE Branch GLUC,) 20 mg iron-1 mg -25 mg/25 mg TbSQ doxylamine- 20190 Yes [id number] 2{tbl} Take 2 Univers pyridoxine, 7-29 tablets by it y of vit B6, 00:00: mouth at [place] ([facility]) 00 bedtime. Medic al 10-10 mg Branch per tablet 2019-0 2020- No [id number] 1{tbl} Take 1 Univers 48-iron-fol 7-29 02-15 tablet by it y of ic acid-B6 00:00: 00:00 mouth [place] (CITRANATAL 00 :00 daily. Medica l B-CALM, FE Branch GLUC,) 20 mg iron-1 mg -25 mg/25 mg TbSQ doxylamine- 0 2020- No [id number] 2{tbl} Take 2 Univers pyridoxine, 729 02-15 tablets by i ty of vit B6, 00:00: 00:00 mouth at [place] (DICLEGIS) 00 :00 bedtime. Medic al 10-10 mg Branch per tablet CITRANATAL 2015-07 Yes Univers ASSURE 35 0-14 ity of mg iron-1 00:00: [place] mg -50 00 Medical mg-300 mg Branch combo pack CITRANATAL 2015-07 Yes Univers ASSURE 35 0-14 ity of mg iron-1 00:00: [place] mg -50 00 Medical mg-300 mg Branch combo pack CITRANATAL 2015-07 Yes Univers ASSURE 35 0-14 ity of mg iron-1 00:00: [place] mg -50 00 Medical mg-300 mg Branch combo pack CITRANATAL 2015-07 Yes Univers ASSURE 35 0-14 ity of mg iron-1 00:00: [place] mg -50 00 Medical mg-300 mg Branch combo pack CITRANATAL 2015-07 Yes Univers ASSURE 35 0-14 ity of mg iron-1 00:00: [place] mg -50 00 Medical mg-300 mg Branch combo pack CITRANATAL 2015-07 Yes Univers ASSURE 35 0-14 ity of mg iron-1 00:00: [place] mg -50 00 Medical mg-300 mg Branch combo pack CITRANATAL 2015-07 Yes Univers ASSURE 35 0-14 ity of mg iron-1 00:00: [place] mg -50 00 Medical mg-300 mg Branch combo pack CITRANATAL 2015-07 Yes Univers ASSURE 35 0-14 ity of mg iron-1 00:00: [place] mg -50 00 Medical mg-300 mg Branch combo pack CITRANATAL 2015-07 Yes Univers ASSURE 35 0-14 ity of mg iron-1 00:00: [place] mg -50 00 Medical mg-300 mg Branch combo pack CITRANATAL 2015-07 Yes Univers ASSURE 35 0-14 ity of mg iron-1 00:00: [place] mg -50 00 Medical mg-300 mg Branch combo pack CITRANATAL 2015-07 Yes Univers ASSURE 35 0-14 ity of mg iron-1 00:00: [place] mg -50 00 Medical mg-300 mg Branch combo pack CITRANATAL 2015-07 Yes Univers ASSURE 35 0-14 ity of mg iron-1 00:00: [place] mg -50 00 Medical mg-300 mg Branch combo pack CITRANATAL 2015-07 Yes Univers ASSURE 35 0-14 ity of mg iron-1 00:00: [place] mg -50 00 Medical mg-300 mg Branch combo pack CITRANATAL 2015-07 Yes Univers ASSURE 35 0-14 ity of mg iron-1 00:00: [place] mg -50 00 Medical mg-300 mg Branch combo pack CITRANATAL 2015-07 2020- No Univer s ASSURE 35 0-14 -28 ity of mg iron-1 00:00: 00:00 [place] mg -50 00 :00 Medical mg-300 mg Branch combo pack CITRANATAL 2015-07 2020- No Univer s ASSURE 35 0-14 -28 ity of mg iron-1 00:00: 00:00 [place] mg -50 00 :00 Medical mg-300 mg Branch combo pack PNV without 2015-07 Yes 1{tbl} Take 1 Un matthew Ca-Iron 0-13 tablet by ity of PsCmplx-FA 00:00: mouth [place] (SELECT-OB, 00 daily. Medica l FOLIC Branch ACID,) 29-1 mg Chew PNV without 2015-07 Yes 1{tbl} Take 1 Un matthew Ca-Iron 0-13 tablet by ity of PsCmplx-FA 00:00: mouth [place] (SELECT-OB, 00 daily. Medica l FOLIC Branch ACID,) 29-1 mg Chew PNV without 2015-07 Yes 1{tbl} Take 1 Un matthew Ca-Iron 0-13 tablet by ity of PsCmplx-FA 00:00: mouth [place] (SELECT-OB, 00 daily. Medica l FOLIC Branch ACID,) 29-1 mg Chew PNV without 2015-07 Yes 1{tbl} Take 1 Un matthew Ca-Iron 0-13 tablet by ity of PsCmplx-FA 00:00: mouth [place] (SELECT-OB, 00 daily. Medica l FOLIC Branch ACID,) 29-1 mg Chew PNV without 2015-07 Yes 1{tbl} Take 1 Un matthew Ca-Iron 0-13 tablet by ity of PsCmplx-FA 00:00: mouth [place] (SELECT-OB, 00 daily. Medica l FOLIC Branch ACID,) 29-1 mg Chew PNV without 2015-07 Yes 1{tbl} Take 1 Un matthew Ca-Iron 0-13 tablet by ity of PsCmplx-FA 00:00: mouth [place] (SELECT-OB, 00 daily. Medica l FOLIC Branch ACID,) 29-1 mg Chew PNV without 2016- Yes 1{tbl} Take 1 Un matthew Ca-Iron 0-13 tablet by ity of PsCmplx-FA 00:00: mouth [place] (SELECT-OB, 00 daily. Medica l FOLIC Branch ACID,) 29-1 mg Chew PNV without 2016- Yes 1{tbl} Take 1 Un matthew Ca-Iron 0-13 tablet by ity of PsCmplx-FA 00:00: mouth [place] (SELECT-OB, 00 daily. Medica l FOLIC Branch ACID,) 29-1 mg Chew PNV without 2016- Yes 1{tbl} Take 1 Un matthew Ca-Iron 0-13 tablet by ity of PsCmplx-FA 00:00: mouth [place] (SELECT-OB, 00 daily. Medica l FOLIC Branch ACID,) 29-1 mg Chew PNV without 2016- Yes 1{tbl} Take 1 Un matthew Ca-Iron 0-13 tablet by ity of PsCmplx-FA 00:00: mouth [place] (SELECT-OB, 00 daily. Medica l FOLIC Branch ACID,) 29-1 mg Chew PNV without 2016- Yes 1{tbl} Take 1 Un matthew Ca-Iron 0-13 tablet by ity of PsCmplx-FA 00:00: mouth [place] (SELECT-OB, 00 daily. Medica l FOLIC Branch ACID,) 29-1 mg Chew PNV without 2016- Yes 1{tbl} Take 1 Un matthew Ca-Iron 0-13 tablet by ity of PsCmplx-FA 00:00: mouth [place] (SELECT-OB, 00 daily. Medica l FOLIC Branch ACID,) 29-1 mg Chew PNV without 2016- Yes 1{tbl} Take 1 Un matthew Ca-Iron 0-13 tablet by ity of PsCmplx-FA 00:00: mouth [place] (SELECT-OB, 00 daily. Medica l FOLIC Branch ACID,) 29-1 mg Chew PNV without 2016- Yes 1{tbl} Take 1 Un matthew Ca-Iron 0-13 tablet by ity of PsCmplx-FA 00:00: mouth [place] (SELECT-OB, 00 daily. Medica l FOLIC Branch ACID,) 29-1 mg Chew PNV without 2015-07 Yes 1{tbl} Take 1 Un matthew Ca-Iron 0-13 tablet by ity of PsCmplx-FA 00:00: mouth [place] (SELECT-OB, 00 daily. Medica l FOLIC Branch ACID,) 29-1 mg Chew PNV without 2015-07 Yes 1{tbl} Take 1 Un matthew Ca-Iron 0-13 tablet by ity of PsCmplx-FA 00:00: mouth [place] (SELECT-OB, 00 daily. Medica l FOLIC Branch ACID,) 29-1 mg Chew PNV without 2015-07 Yes 1{tbl} Take 1 Un matthew Ca-Iron 0-13 tablet by ity of PsCmplx-FA 00:00: mouth [place] (SELECT-OB, 00 daily. Medica l FOLIC Branch ACID,) 29-1 mg Chew PNV without 2015-07 Yes 1{tbl} Take 1 Un matthew Ca-Iron 0-13 tablet by ity of PsCmplx-FA 00:00: mouth [place] (SELECT-OB, 00 daily. Medica l FOLIC Branch ACID,) 29-1 mg Chew PNV without 2015-07 Yes 1{tbl} Take 1 Un matthew Ca-Iron 0-13 tablet by ity of PsCmplx-FA 00:00: mouth [place] (SELECT-OB, 00 daily. Medica l FOLIC Branch ACID,) 29-1 mg Chew PNV without 2015-07 Yes 1{tbl} Take 1 Un matthew Ca-Iron 0-13 tablet by ity of PsCmplx-FA 00:00: mouth [place] (SELECT-OB, 00 daily. Medica l FOLIC Branch ACID,) 29-1 mg Chew PNV without 2015-07 2020- No 1{tbl} Take 1 U nivers Ca-Iron 0-13 02-15 tablet by ity of PsCmplx-FA 00:00: 00:00 mouth [place] (SELECT-OB, 00 :00 daily. Medica l FOLIC Branch ACID,) 29-1 mg Chew doxylamine- Yes Take 2 Univ ers pyridoxine 9-27 tablets po ity of (DICLEGIS) 00:00: q hs, october [place] 10-10 mg 00 take an Medical per tablet additional Bra nch 1 tablet in the morning and 1 tablet in the afternoon prn nausea/vom iting doxylamine- 2016-0 Yes Take 2 Univ ers pyridoxine 9-27 tablets po ity of (DICLEGIS) 00:00: q hs, [place] 10-10 mg 00 take an Medical per tablet additional Bra nch 1 tablet in the morning and 1 tablet in the afternoon prn nausea/vom iting doxylamine- 2016-0 Yes Take 2 Univ ers pyridoxine 9-27 tablets po ity of (DICLEGIS) 00:00: q hs, october [place] 10-10 mg 00 take an Medical per tablet additional Bra nch 1 tablet in the morning and 1 tablet in the afternoon prn nausea/vom iting doxylamine- 2015-0 Yes Take 2 Univ ers pyridoxine 9-27 tablets po ity of (DICLEGIS) 00:00: q hs, october [place] 10-10 mg 00 take an Medical per tablet additional Bra nch 1 tablet in the morning and 1 tablet in the afternoon prn nausea/vom iting doxylamine- 2015-0 Yes Take 2 Univ ers pyridoxine 9-27 tablets po ity of (DICLEGIS) 00:00: q hs, october [place] 10-10 mg 00 take an Medical per tablet additional Bra nch 1 tablet in the morning and 1 tablet in the afternoon prn nausea/vom iting doxylamine- 2015-0 Yes Take 2 Univ ers pyridoxine 9-27 tablets po ity of (DICLEGIS) 00:00: q hs, october [place] 10-10 mg 00 take an Medical per tablet additional Bra nch 1 tablet in the morning and 1 tablet in the afternoon prn nausea/vom iting doxylamine- 2016-0 Yes Take 2 Univ ers pyridoxine 9-27 tablets po ity of (DICLEGIS) 00:00: q hs, october [place] 10-10 mg 00 take an Medical per tablet additional Bra nch 1 tablet in the morning and 1 tablet in the afternoon prn nausea/vom iting doxylamine- 2016-0 Yes Take 2 Univ ers pyridoxine 9-27 tablets po ity of (DICLEGIS) 00:00: q hs, october [place] 10-10 mg 00 take an Medical per tablet additional Bra nch 1 tablet in the morning and 1 tablet in the afternoon prn nausea/vom iting doxylamine- 2016-0 Yes Take 2 Univ ers pyridoxine 9-27 tablets po ity of (DICLEGIS) 00:00: q hs, october [place] 10-10 mg 00 take an Medical per tablet additional Bra nch 1 tablet in the morning and 1 tablet in the afternoon prn nausea/vom iting doxylamine- 2016-0 Yes Take 2 Univ ers pyridoxine 9-27 tablets po ity of (DICLEGIS) 00:00: q hs, october [place] 10-10 mg 00 take an Medical per tablet additional Bra nch 1 tablet in the morning and 1 tablet in the afternoon prn nausea/vom iting doxylamine- 2015-0 Yes Take 2 Univ ers pyridoxine 9-27 tablets po ity of (DICLEGIS) 00:00: q hs, october [place] 10-10 mg 00 take an Medical per tablet additional Bra nch 1 tablet in the morning and 1 tablet in the afternoon prn nausea/vom iting doxylamine- 2015-0 Yes Take 2 Univ ers pyridoxine 9-27 tablets po ity of (DICLEGIS) 00:00: q hs, october [place] 10-10 mg 00 take an Medical per tablet additional Bra nch 1 tablet in the morning and 1 tablet in the afternoon prn nausea/vom iting doxylamine- 2015-0 Yes Take 2 Univ ers pyridoxine 9-27 tablets po ity of (DICLEGIS) 00:00: q hs, october [place] 10-10 mg 00 take an Medical per tablet additional Bra nch 1 tablet in the morning and 1 tablet in the afternoon prn nausea/vom iting doxylamine- 2015-0 Yes Take 2 Univ ers pyridoxine 9-27 tablets po ity of (DICLEGIS) 00:00: q hs, october [place] 10-10 mg 00 take an Medical per tablet additional Bra nch 1 tablet in the morning and 1 tablet in the afternoon prn nausea/vom iting doxylamine- 2016-0 2020- No Take 2 Uni vers pyridoxine 9-27 -28 tablets po it y of (DICLEGIS) 00:00: 00:00 q hs, october [place] 10-10 mg 00 :00 take an Medical per tablet additional Bra nch 1 tablet in the morning and 1 tablet in the afternoon prn nausea/vom iting doxylamine- 2015- 2020- No Take 2 Uni vers pyridoxine 9-27 -28 tablets po it y of (DICLEGIS) 00:00: 00:00 q hs, october [place] 10-10 mg 00 :00 take an Medical per tablet additional Bra nch 1 tablet in the morning and 1 tablet in the afternoon prn nausea/vom iting proMETHazin 2016-0 Yes 25mg Take 1 Univ ers e 9-07 tablet by ity of (PHENERGAN) 00:00: mouth [place] 25 mg 00 every 4 Medical tablet (four) Branch hours as needed for Nausea and Vomiting (N/V). proMETHazin 2016-0 Yes 25mg Take 1 Univ ers e 9-07 tablet by ity of (PHENERGAN) 00:00: mouth [place] 25 mg 00 every 4 Medical tablet (four) Branch hours as needed for Nausea and Vomiting (N/V). proMETHazin 2016-0 Yes 25mg Take 1 Univ ers e 9-07 tablet by ity of (PHENERGAN) 00:00: mouth [place] 25 mg 00 every 4 Medical tablet (four) Branch hours as needed for Nausea and Vomiting (N/V). proMETHazin 2016-0 Yes 25mg Take 1 Univ ers e 9-07 tablet by ity of (PHENERGAN) 00:00: mouth [place] 25 mg 00 every 4 Medical tablet (four) Branch hours as needed for Nausea and Vomiting (N/V). proMETHazin 2016-0 Yes 25mg Take 1 Univ ers e 9-07 tablet by ity of (PHENERGAN) 00:00: mouth [place] 25 mg 00 every 4 Medical tablet (four) Branch hours as needed for Nausea and Vomiting (N/V). proMETHazin 2016-0 Yes 25mg Take 1 Univ ers e 9-07 tablet by ity of (PHENERGAN) 00:00: mouth [place] 25 mg 00 every 4 Medical tablet (four) Branch hours as needed for Nausea and Vomiting (N/V). proMETHazin 2016-0 Yes 25mg Take 1 Univ ers e 9-07 tablet by ity of (PHENERGAN) 00:00: mouth [place] 25 mg 00 every 4 Medical tablet (four) Branch hours as needed for Nausea and Vomiting (N/V). proMETHazin 2016-0 Yes 25mg Take 1 Univ ers e 9-07 tablet by ity of (PHENERGAN) 00:00: mouth [place] 25 mg 00 every 4 Medical tablet (four) Branch hours as needed for Nausea and Vomiting (N/V). proMETHazin 2016-0 Yes 25mg Take 1 Univ ers e 9-07 tablet by ity of (PHENERGAN) 00:00: mouth [place] 25 mg 00 every 4 Medical tablet (four) Branch hours as needed for Nausea and Vomiting (N/V). proMETHazin 2016-0 Yes 25mg Take 1 Univ ers e 9-07 tablet by ity of (PHENERGAN) 00:00: mouth [place] 25 mg 00 every 4 Medical tablet (four) Branch hours as needed for Nausea and Vomiting (N/V). proMETHazin 2016-0 Yes 25mg Take 1 Univ ers e 9-07 tablet by ity of (PHENERGAN) 00:00: mouth [place] 25 mg 00 every 4 Medical tablet (four) Branch hours as needed for Nausea and Vomiting (N/V). proMETHazin 2016-0 Yes 25mg Take 1 Univ ers e 9-07 tablet by ity of (PHENERGAN) 00:00: mouth [place] 25 mg 00 every 4 Medical tablet (four) Branch hours as needed for Nausea and Vomiting (N/V). proMETHazin 2016-0 Yes 25mg Take 1 Univ ers e 9-07 tablet by ity of (PHENERGAN) 00:00: mouth [place] 25 mg 00 every 4 Medical tablet (four) Branch hours as needed for Nausea and Vomiting (N/V). proMETHazin 2016-0 Yes 25mg Take 1 Univ ers e 9-07 tablet by ity of (PHENERGAN) 00:00: mouth [place] 25 mg 00 every 4 Medical tablet (four) Branch hours as needed for Nausea and Vomiting (N/V). proMETHazin 2016-0 Yes 25mg Take 1 Univ ers e 9-07 tablet by ity of (PHENERGAN) 00:00: mouth [place] 25 mg 00 every 4 Medical tablet (four) Branch hours as needed for Nausea and Vomiting (N/V). proMETHazin 2016-0 Yes 25mg Take 1 Univ ers e 9-07 tablet by ity of (PHENERGAN) 00:00: mouth [place] 25 mg 00 every 4 Medical tablet (four) Branch hours as needed for Nausea and Vomiting (N/V). proMETHazin 2016-0 Yes 25mg Take 1 Univ ers e 9-07 tablet by ity of (PHENERGAN) 00:00: mouth [place] 25 mg 00 every 4 Medical tablet (four) Branch hours as needed for Nausea and Vomiting (N/V). proMETHazin 2016-0 Yes 25mg Take 1 Univ ers e 9-07 tablet by ity of (PHENERGAN) 00:00: mouth [place] 25 mg 00 every 4 Medical tablet (four) Branch hours as needed for Nausea and Vomiting (N/V). proMETHazin 2016-0 Yes 25mg Take 1 Univ ers e 9-07 tablet by ity of (PHENERGAN) 00:00: mouth [place] 25 mg 00 every 4 Medical tablet (four) Branch hours as needed for Nausea and Vomiting (N/V). proMETHazin 2016-0 Yes 25mg Take 1 Univ ers e 9-07 tablet by ity of (PHENERGAN) 00:00: mouth [place] 25 mg 00 every 4 Medical tablet (four) Branch hours as needed for Nausea and Vomiting (N/V). proMETHazin 2016-0 2020- No 25mg Take 1 Uni vers e 9-07 02-15 tablet by ity of (PHENERGAN) 00:00: 00:[place] 25 mg 00 :00 every 4 Medical tablet (four) Branch hours as needed for Nausea and Vomiting (N/V). Immunizations Ordered Filled Immunization Date Status Comments [facility] Immunization Name Name Tdap 2019-06-03 Completed University of 00:00:00 [facility] Tdap 2019-06-03 Completed University of 00:00:00 [facility] Tdap 2019-06-03 Completed University of 00:00:00 [facility] Tdap 2019-06-03 Completed University of 00:00:00 [facility] Tdap 2019-06-03 Completed University of 00:00:00 [facility] Tdap 2019-06-03 Completed University of 00:00:00 [facility] Tdap 2019-06-03 Completed University of 00:00:00 [facility] Tdap 2019-06-03 Completed University of 00:00:00 [place] [facility] Tdap 2019-06-03 Completed University of 00:00:00 [place] [facility] Tdap 2019-06-03 Completed University of 00:00:00 [place] [facility] Tdap 2019-06-03 Completed University of 00:00:00 [place] [facility] Tdap 2019-06-03 Completed University of 00:00:00 [place] [facility] Tdap 2019-06-03 Completed University of 00:00:00 [facility] Influenza Virus 2019-05-14 Completed Universit y of Vaccine Quad .5 mL 00:00:00 [place] [facility] IM 6+ MO Branch Influenza Virus 2019-05-14 Completed Universit y of Vaccine [facility] .5 mL 00:00:00 [place] [facility] IM 6+ MO Branch Influenza Virus 2019-05-14 Completed Universit y of Vaccine [facility] .5 mL 00:00:00 [place] [facility] IM 6+ MO Branch Influenza Virus 2019-05-14 Completed Universit y of Vaccine [facility] .5 mL 00:00:00 [place] [facility] IM 6+ MO Branch Influenza Virus 2019-05-14 Completed Universit y of Vaccine [facility] .5 mL 00:00:00 [place] [facility] IM 6+ MO Branch Influenza Virus 2019-05-14 Completed Universit y of Vaccine [facility] .5 mL 00:00:00 [place] [facility] IM 6+ MO Branch Influenza Virus 2019-05-14 Completed Universit y of Vaccine [facility] .5 mL 00:00:00 [place] [facility] IM 6+ MO Branch Influenza Virus 2019-05-14 Completed Universit y of Vaccine [facility] .5 mL 00:00:00 [place] [facility] IM 6+ MO Branch Influenza Virus 2019-05-14 Completed Universit y of Vaccine Quad .5 mL 00:00:00 [place] [facility] IM 6+ MO Branch Influenza Virus 2019-05-14 Completed Universit y of Vaccine [facility] .5 mL 00:00:00 [place] [facility] IM 6+ MO Branch Influenza Virus 2019-05-14 Completed Universit y of Vaccine [facility] .5 mL 00:00:00 [place] [facility] IM 6+ MO Branch Influenza Virus 2019-05-14 Completed Universit y of Vaccine Quad .5 mL 00:00:00 [place] [facility] IM 6+ MO Branch Influenza Virus 2019-05-14 Completed Universit y of Vaccine Quad .5 mL 00:00:00 [place] [facility] IM 6+ MO Branch PPD (TB) 2016-03-01 Completed University of 00:00:00 [facility] PPD (TB) 2016-03-01 Completed University of 00:00: [facility] PPD (TB) 2016-03-01 Completed University of 00:00: [facility] PPD (TB) 2016-03-01 Completed University of 00:00: [facility] PPD (TB) 2016-03-01 Completed University of 00:00: [facility] PPD (TB) 2016-03-01 Completed University of 00:00: [facility] PPD (TB) 2016-03-01 Completed University of 00:00: [facility] PPD (TB) 2016-03-01 Completed University of 00:00: [facility] PPD (TB) 2016-03-01 Completed University of 00:00: [facility] PPD (TB) 2016-03-01 Completed University of 00:00:00 [facility] PPD (TB) 2016-03-01 Completed University of 00:00:00 [facility] PPD (TB) 2016-03-01 Completed University of 00:00:00 [facility] PPD (TB) 2016-03-01 Completed University of 00:00:00 [facility] PPD (TB) 2016-03-01 Completed University of 00:00:00 [facility] PPD (TB) 2016-03-01 Completed University of 00:00:00 [facility] PPD (TB) 2016-03-01 Completed University of 00:00:00 [facility] PPD (TB) 2016-03-01 Completed University of 00:00:00 [facility] PPD (TB) 2016-03-01 Completed University of 00:00:00 [facility] PPD (TB) 2016-03-01 Completed University of 00:00:00 [facility] PPD (TB) 2016-03-01 Completed University of 00:00:00 [facility] PPD (TB) 2016-03-01 Completed University of 00:00:00 [facility] PPD (TB) 2016-03-01 Completed University of 00:00:00 [facility] PPD (TB) 2016-03-01 Completed University of 00:00:00 [facility] PPD (TB) 2016-03-01 Completed University of 00:00:00 [facility] PPD (TB) 2016-03-01 Completed University of 00:00:00 [facility] Vital Signs Vital Name Observation Time Observation Value Comments Source Systolic blood 2019-09-06 19:27:00 109 mm[Hg] Univer sity of pressure [place] [facility] Diastolic blood 2019-09-06 19:27:00 68 mm[Hg] Unive rsity of pressure [facility] Heart rate 2019-09-06 19:27:00 78 /min Universi ty of [facility] Body temperature 2019-09-06 19:27:00 36.11 [place] Univ ersity of [facility] Respiratory rate 2019-09-06 19:27:00 16 /min Univ ersity of [facility] Body height 2019-09-06 19:27:00 170.2 cm Universi ty of [place] [facility] [place] Body weight 2019-09-06 19:27:00 96.871 kg Universi ty of [facility] BMI 2019-09-06 19:27:00 33.45 kg/m2 Universi ty of [facility] Systolic blood 2019-08-17 22:00:00 116 mm[Hg] Univer sity of pressure [facility] Diastolic blood 2019-08-17 22:00:00 71 mm[Hg] Unive rsity of pressure [facility] Heart rate 2019-08-17 22:00:00 72 /min Universi ty of [facility] Body temperature 2019-08-17 22:00:00 36.78 [place] Univ ersity of [facility] Respiratory rate 2019-08-17 22:00:00 18 /min Univ ersity of [facility] Oxygen saturation in 2019-08-17 22:00:00 98 /min University of Arterial blood by [facility] Pulse oximetry Branch Body height 2019-08-16 13:48:00 170.2 cm Universi ty of [place] [facility] [place] Body weight 2019-08-16 13:48:00 101.56 kg Universi ty of [place] [facility] BMI 2019-08-16 13:48:00 35.07 kg/m2 Universi ty of [facility] Systolic blood 2019-08-12 16:33:00 103 mm[Hg] Univer sity of pressure [facility] Diastolic blood 2019-08-12 16:33:00 63 mm[Hg] Unive rsity of pressure [facility] Heart rate 2019-08-12 16:33:00 84 /min Universi ty of [facility] Body temperature 2019-08-12 16:33:00 37.11 [place] Univ ersity of [place] [facility] Respiratory rate 2019-08-12 16:33:00 16 /min Univ ersity of [facility] Body height 2019-08-12 16:33:00 170.2 cm Universi ty of [facility] Body weight 2019-08-12 16:33:00 101.379 kg Universi ty of [facility] BMI 2019-08-12 16:33:00 35.01 kg/m2 Universi ty of [facility] Systolic blood 2019-08-06 17:07:00 111 mm[Hg] Univer sity of pressure [facility] Diastolic blood 2019-08-06 17:07:00 64 mm[Hg] Unive rsity of pressure [facility] Heart rate 2019-08-06 17:07:00 87 /min Universi ty of [facility] Body temperature 2019-08-06 17:07:00 36.33 [place] Univ ersity of [facility] Respiratory rate 2019-08-06 17:07:00 16 /min Univ ersity of [facility] Body height 2019-08-06 17:07:00 170.2 cm Universi ty of [facility] Body weight 2019-08-06 17:07:00 100.897 kg Universi ty of [facility] BMI 2019-08-06 17:07:00 34.84 kg/m2 Universi ty of [facility] Heart rate 2019-08-06 02:20:00 86 /min Universi ty of [facility] Oxygen saturation in 2019-08-06 02:20:00 100 /min University Arterial blood by [facility] Pulse oximetry Branch Systolic blood 2019-08-05 21:30:00 119 mm[Hg] Univer sity of pressure [facility] Diastolic blood 2019-08-05 21:30:00 61 mm[Hg] Unive rsity of pressure [facility] Body temperature 2019-08-05 21:30:00 36.78 [place] Univ ersity of [facility] Respiratory rate 2019-08-05 21:30:00 16 /min Univ ersity of [facility] Body height 2019-08-05 21:30:00 170.2 cm Universi ty of [facility] Body weight 2019-08-05 21:30:00 102.059 kg Universi ty of [facility] BMI 2019-08-05 21:30:00 35.24 kg/m2 Universi ty of [place] [facility] Systolic blood 2019-07-30 17:13:00 107 mm[Hg] Univer sity of [facility] Diastolic blood 2019-07-30 17:13:00 66 mm[Hg] Unive rsity of [facility] Heart rate 2019-07-30 17:13:00 62 /min [facility] Body temperature 2019-07-30 17:13:00 36.67 Leilani [facility] Respiratory rate 2019-07-30 17:13:00 16 /min [facility] Body height 2019-07-30 17:13:00 170.2 cm [facility] Body weight 2019-07-30 17:13:00 100.358 kg [facility] BMI 2019-07-30 17:13:00 34.65 kg/m2 [facility] Systolic blood 2019-07-16 17:01:00 113 mm[Hg] Univer sity of [facility] Diastolic blood 2019-07-16 17:01:00 68 mm[Hg] Unive rsity of [facility] Heart rate 2019-07-16 17:01:00 102 /min [facility] Body temperature 2019-07-16 17:01:00 36.22 Leilani [facility] Respiratory rate 2019-07-16 17:01:00 16 /min [facility] Body height 2019-07-16 17:01:00 170.2 cm [facility] Body weight 2019-07-16 17:01:00 99.701 kg [facility] BMI 2019-07-16 17:01:00 34.43 kg/m2 [facility] Systolic blood 2019-02-25 15:10:00 128 mm[Hg] Univer sity of [facility] Diastolic blood 2019-02-25 15:10:00 72 mm[Hg] Unive rsity of [facility] Heart rate 2019-02-25 15:10:00 70 /min [facility] Body temperature 2019-02-25 15:10:00 36.28 Leilani [facility] Respiratory rate 2019-02-25 15:10:00 16 /min [facility] Body height 2019-02-25 15:10:00 170.2 cm [facility] Body weight 2019-02-25 15:10:00 87.601 kg [facility] BMI 2019-02-25 15:10:00 30.25 kg/m2 Universi ty [facility] Systolic blood 2019-01-28 14:00:00 108 mm[Hg] Univer sity of pressure [facility] Diastolic blood 2019-01-28 14:00:00 68 mm[Hg] Unive rsity of pressure [facility] Heart rate 2019-01-28 14:00:00 87 /min Universi ty [facility] Body temperature 2019-01-28 14:00:[address] [facility] Respiratory rate 2019-01-28 14:00:00 16 /min [facility] height 2019-01-28 14:00:00 170.2 cm [facility] Body weight 2019-01-28 14:00:00 92.987 kg Universi ty [facility] BMI 2019-01-28 14:00:00 32.11 kg/m2 Universi ty [facility] Procedures Procedure Date / Time Performing Clinician Source Performed CBC WITH DIFFERENTIAL 2019-08-17 10:27:00 Na Reaves [facility] HEPATITIS B SURFACE 2019-08-16 14:54:00 Haresh Hilary [facility] ANTIGEN [facility] GALV ONLY - SYPHILIS 2019-08-16 14:54:00 [facility] IGG/IGM [facility] HB ABO GROUPING 2019-08-16 14:52:00 [facility] o f [facility] RHO (D) IMMUNE GLOBULIN 2019-08-16 14:52:00 Na Reaves [facility] HOSPITAL ADMISSION 2019-08-16 06:01:00 Doctor Unassigned, No Uni versity of [facility] POCT RAPID STREP SCREEN 2019-08-12 17:30:00 Oskar Bernard [facility] FOR GROUP A Medical Branch POCT URINALYSIS 2019-08-12 16:36:00 Cherie Nava [facility] POCT URINALYSIS GLUCOSE 2019-08-06 17:09:00 [facility] PROTEIN [facility] US BIOPHYSICAL 2019-08-05 23:43:08 Ken Morales [facility] PRO[facility] NOTICE OF PRIVACY 2019-08-05 21:13:07 Doctor Unassigned, No [facility] CONSENT/REFUSAL FOR 2019-08-05 21:12:47 Doctor Unassigned, No [facility] ASSIGNMENT OF BENEFITS 2019-08-05 21:12:31 Doctor Unassigned, No [facility] POCT URINALYSIS 2019-07-30 17:32:00 Cherie Nava [facility] POCT URINALYSIS 2019-02-25 15:11:00 Cherie Nava [facility] CBC WITH DIFFERENTIAL 2019-01-28 14:59:00 [facility]IS B SURFACE 2019-01-28 14:59:00 [facility]rie [facility]ava [facility] ANTIGEN [facility] HCV ANTIBODY 2019-01-28 14:59:00 Cherie Nava [facility] WORKUP, BLOOD 2019-01-28 14:59:00 Cherie Nava [facility] HIV 1/2 AG-AB WITH 2019-01-28 14:59:00 Cherie Nava Univ [facility] REFLEX [facility] GALV ONLY - SYPHILIS 2019-01-28 14:59:00 [facility] IGG/IGM [facility] POCT URINALYSIS W/O 2019-01-28 14:05:00 [facility]rie [facility] [place] SPECIFIC GRAVITY [facility] POCT TEST 2019-01-28 14:02:00 Cherie [facility] NOTICE OF PRIVACY 2019-01-28 13:24:57 Doctor Unassigned, No [facility] Hospital Encounters Start End Encounter Admission Attending Care Care Encounter Source Date/Time Date/Time Type Type Clinicians Facility Department ID 2019-12-31 2019-12-31 Outpatient R AKINSIPE, [facility] [id number] Univers 13:15:00 13:15:00 CHERIE itjohn santos [facility] 2019-12-31 2019-12-31 Outpatient R AKINSIPE, [facility] [id number] Univers 13:15:00 13:15:00 CHERIE itjohn o [facility] 2019-12-18 2019-12-18 Outpatient R AKINSIPE, [facility] [id number] Univers 09:00:00 09:00:00 CHERIE [id number] [facility] 2019-10-17 2019-10-17 [facility]ici [facility] [id number] Univers 07:59:47 10:35:47 ne Visit Cherie C GROUP HOME COUNSELOR [id number] ity of REGIONAL [id number] [place] as MATERNAL [phone] [facility] ical & CHILD [address] [place] [address] 2019-10-17 2019-10-17 Outpatient R AKINSIPE, [facility] [id number] Univers 10:30:00 10:30:00 CHERIE [id number] itjohn [facility] 2019-10-17 2019-10-17 Outpatient R AKINSIPE, [facility] [id number] Univers 10:30:00 10:30:00 [facility]ERIE [facility] 2019-09-27 2019-09-27 Telemedici [facility] [id number] Univers 11:57:47 14:10:04 ne Visit Cherie C GROUP HOME COUNSELOR [id number] ity of REGIONAL [id number] [place] as MATERNAL [phone] [facility] [address] [place] [address] 2019-09-27 2019-09-27 Outpatient R AKINSIPE, [facility] [id number] Univers 13:15:00 13:15:00 CHERIE [id number] armandojohn o [facility] 2019-09-27 2019-09-27 Outpatient R AKINSIPE, [facility] [id number] Univers 13:15:00 13:15:00 CHERIE ity o f [facility] 2019-09-06 2019-09-06 [facility] [id number] Univers 13:14:24 13:49:35 Cherie C GROUP HOME COUNSELOR [id number] ity of Visit REGIONAL [id number] [place] MATERNAL [phone] [facility] ical & CHILD [address] [place] [address] 2019-09-06 2019-09-06 Outpatient R JORDANJOHN, [facility] [id number] Univers 12:45:00 12:45:00 CHERIE ity o f [facility] 2019-08-16 2019-08-17 Hospital Pete HUNT 1.2.840.114 [id number] Univers 06:56:00 20:54:00 Encounter Maurice CHAVEZ [id number] ity of , [facility] [id number] [place] [phone] [facility] [address] 2019-08-16 2019-08-16 Orders Doctor MARILEE 1.2.840.114 [id number] Univers 00:00:00 00:00:00 Only Unassigned, SCOTT [id number] ity of [place] [facility] [id number] [place] as [phone] [facility] [address] 2019-08-12 2019-08-12 Routine [facility] 1.2.840.114 [id number] Univers 09:54:37 11:10:34 Roshunda R GROUP HOME COUNSELOR [id number] ity of Visit [facility] [id number] [place] as MATERNAL [phone] [facility] [address] [place] [address] 2019-08-06 2019-08-06 Routine [facility] 1.2.840.114 [id number] Univers 10:43:38 11:10:34 Roshunda R GROUP HOME COUNSELOR [id number] ity of Visit [facility] [id number] [place] as MATERNAL [phone] [facility] & CHILD [address] [place] [address] 2019-08-05 2019-08-05 Hospital Ken Morales [facility] 1.2.840.114 [id number] Univers 15:09:00 20:32:00 Encounter Leo [place] [id number] ity of [place] [phone] [facility] [address] 2019-08-05 2019-08-05 Nurse MARILEE Nye 1.2.840.114 [id number] Univers 00:00:00 00:00:00 Triage Jumana CHAVEZ [id number] ity of [facility] 4.2.7.2.686 [place] [phone] [facility] [address] 2019-07-30 2019-07-30 [facility] 1.2.840.114 [id number] Univers 10:49:06 11:37:23 Roshunda R GROUP HOME COUNSELOR 350.1.13.10 ity of Visit [facility] [id number] [place] MATERNAL [phone] [facility] ical & CHILD [address] [place] [address] 2019-07-16 2019-07-16 Routine [facility] 1.2.840.114 [id number] Univers 10:45:29 11:23:55 Roshunda R GROUP HOME COUNSELOR [id number] ity of Visit [facility] [id number] [place] MATERNAL [phone] [facility] ical & CHILD [address] [place] [address] 2019-02-25 2019-02-25 Routine Luis AntonioalishajohnRE[facility]IL[facility] [id number] Univers 09:52:05 10:47:27 Cherie C GROUP HOME COUNSELOR [id number] ity of Visit [facility] [id number] [place] as MATERNAL [phone] [facility] ical & CHILD [address] [place] [address] 2019-02-08 2019-02-08 Quality Lab Technician Lab, [facility] UNIVERSIT 1.2.84 0.114 [id number] Univers 12:31:45 12:45:41 [facility] [id number] ity of CL[place] [id number] [facility] [address] 2019-02-08 2019-02-08 Quality Lab Technician 2, [facility] Us Room UNIVERSIT 1 .2.840.114 [id number] Univers 11:08:56 11:53:56 Visit Zenobia Palomino [facility] 350.1.1 3.10 ity of Shaniqua Sergey Multani [facility] 4.2.7.2.686 [place] [phone] [facility] [address] 2019-02-04 2019-02-04 Telephone Luis [facility]john[facility] 1.2.840.114 [id number] Univers 00:00:00 00:00:00 Cherie C GROUP HOME COUNSELOR [id number] ity of [facility] [id number] [place] as MATERNAL [phone] Med ical & CHILD [address] [place] [address] 2019-01-31 2019-01-31 Telephone Elijah [facility] 1.2.840.114 [id number] Univers 00:00:00 00:00:00 Cherie C GROUP HOME COUNSELOR [id number] ity of [facility] 4.2.7.2.686 [place] as MATERNAL [phone] Med ical & CHILD [address] [place] [address] 2019-01-31 2019-01-31 Telephone Elijah [facility] 1.2.840.114 [id number] Univers 00:00:00 00:00:00 Cherie C GROUP HOME COUNSELOR [id number] ity of [facility] 4.2.7.2.686 [place] as MATERNAL [phone] [facility] ical & CHILD [address] [place] [address] 2019-01-30 2019-01-30 Quality Lab Technician Lab, Ang-Rm[facility] 1.2.840. 114 [id number] [facility] 12:57:36 13:08:19 Visit Geoffrey Navailola C GROUP HOME COUNSELOR 350.1.13. 10 ity of [facility] [id number] [place] as MATERNAL [phone] [facility] ical & CHILD [address] [place] [address] 2019-01-28 2019-01-28 Initial Luis [facility] 1.2.128.808 [id number] Univers 08:36:22 09:56:43 Cherie C GROUP HOME COUNSELOR [id number] ity of Visit [facility] [id number] [place] as MATERNAL [phone] Med ical & CHILD [address] [place] [address] 2019-01-28 2019-01-28 Orders Doctor MARILEE 1.2.840.114 [id number] Univers 00:00:00 00:00:00 Only Unassigned, SCOTT 350.1.13.10 ity of [place] [facility] 4.2.7.2.686 [place] as [phone] [address] Results Test Description Test Time Test Comments Results Result Comments Source GALV ONLY - [place] IGG/IGM 2019-08-17 16:46:00 Test Item Value Reference Range Interpretation Comme nts Syphilis IgG/IgM (test code = Non-reactive Non-reactive 59956-8) THAO (test code = THAO) Non-reactive - No serologic evidence of T. pallidum infection. Cannot exclude incubating or early syphilis. Submit a second specimen in 2-4 weeks if syphilis is clinically suspected. Equivocal - Further testing to follow. Reactive - Further testing to follow. Lab Interpretation (test code = Normal 04075-6) [facility] WITH [id number] 10:58:00 Test Item Value Reference Range Interpretation Comments WBC (test code = See_Comment H [Automated 1690-2) message] The sy stem which generated this result transmitted reference range : 4.30 - 11.10 10*3/?L. The reference range was not used to interpret this result as normal/abnormal . RBC (test code = See_Comment L [Automated 499-8) message] The sy stem which generated this result transmitted reference range : 3.93 - 5.25 10*6/?L. The reference range was not used to interpret this result as normal/abnormal . HGB (test code = 11.8 g/dL 11.6-15 718-7) HCT (test code = 35.6 % 35.7-45.2 L 4544-3) MCV (test code = 92.2 fL 80.6-95.5 787-2) MCH (test code = 30.6 pg 25.9-32.8 785-6) MCHC (test code = 33.1 g/dL 31.6-35.1 786-4) RDW-SD (test code = 42.7 fL 39-49.9 55218-4) RDW-CV (test code = 12.9 % 12-15.5 788-0) PLT (test code = See_Comment L [Automated 777-3) message] The sy stem which generated this result transmitted reference range : 166 - 358 10*3/ ?L. The reference r estefanía was not used to interpret this result as normal/abnormal . MPV (test code = 11.3 fL 9.5-12.9 53696-5) NRBC/100 WBC (test See_Comment [Automat ed code = [id number]) message] The system which generated this result transmitted reference range : 0.0 - 10.0 /100 WBCs. The refer ence range was not u sed to interpret th is result as normal/abnormal . NRBC x10^3 (test code <0.01 See_Comment [Auto mated = 7323442959) message] The s ystem which generated this result transmitted reference range : 10*3/?L. The reference range was not used to interpret this result as normal/abnormal . GRAN MAT (NEUT) % 72.6 % (test code = 770-8) IMM GRAN % (test code 0.30 % = 2137509556) LYMPH % (test code = 19.9 % 736-9) MONO % (test code = 6.6 % 5905-5) EOS % (test code = 0.4 % 713-8) BASO % (test code = 0.2 % 706-2) GRAN MAT x10^3(ANC) 8.27 10*3/uL 1.88-7.09 H (test code = 0663049489) IMM GRAN x10^3 (test 0.03 10*3/uL 0-0.06 code = 9448093830) LYMPH x10^3 (test code 2.27 10*3/uL 1.32-3.29 = 731-0) MONO x10^3 (test code 0.75 10*3/uL 0.33-0.92 = 742-7) EOS x10^3 (test code = 0.04 10*3/uL 0.03-0.39 711-2) BASO x10^3 (test code <0.03 0.01-0.07 = 704-7) Lab Interpretation Abnormal (test code = 73657-8) [facility] IMMUNE [id number] 04:22:31 Test Item Value Reference Range Interpretation Comments RHIG CANDIDATE? No- see comment Patient i s not a (test code = candidate for R hIg- 5055) Patient is Rh Positive.Perfor med at [facility] Laboratory Services - [facility] [address] [place], [place] [address]Nrht Free: [phone] A No. [id number] [facility] CenterHepatitis B Surface [id number] 16:35:00 Test Item Value Reference Range Interpretation Comments HBsAg Semi-Quantitative (test code = Negative Negative 5195-3) [facility]Type and Screen - ONCE [id number] 15:36:14 Test Item Value Reference Range Interpretation Comments ABO & RH (test code A POSITIVE Performe d at [facility] = 20) Laboratory Serv [facility] Blood Bank3 [address] [facility] [address]Mtdt Free: [phone] A No. [id number] IAT (test code = Negative Performed a t [facility] 1185) Laboratory Serv [facility] Blood [facility]3 [address] [facility] [address]Hoyo Free: [phone] A No. [id number] [facility] RAPID STREP SCREEN FOR GROUP [id number] 17:30:00 Test Item Value Reference Range Interpretation Comments POCT GP A STREP (test code = neg Negative - Negative 12332-8) [facility] URINALYSIS W SPECIFIC [id number] 16:36:00 Test Item Value Reference Range Interpretation Comments POCT U SP GRAV (test code = . 1.005-1.025 3255) POCT PH U (test code = 3254) . 5-8 POCT U LEUK EST (test code = . Negative - Negative 3263) POCT U NIT (test code = 3262) . Negative - Negative POCT U PROT (test code = 3259) trace Negative - Negative POCT U GLU (test code = 3256) neg Negative - Negative POCT U KETONE (test code = 3258) . Negative - Negative POCT U UROBILI (test code = . 0.2-1 3260) POCT U BILI (test code = 3261) . Negative - Negative POCT U BLD (test code = 3257) . Negative - Negative POCT U COLOR (test code = 3266) . POCT U APPEAR (test code = 3267) Lab Interpretation (test code = Abnormal 14696-1) [facility] GLUCOSE & PROTEIN 2019-08-06 17:09:00 Test Item Value Reference Range Interpretation Comments POCT U PROT (test code = 3259) neg Negative - Negative POCT U GLU (test code = 3256) neg Negative - Negative Lab Interpretation (test code = Normal 42724-1) [facility] CenterUS BIOPHYSICAL [id number] 23:49:45Impression: 1. Single living intrauterine gestation with heart rate of 133 bpm.2. Biophysical profile score 8/8. Location Code: 7827 Clinical statement: Decreased movement EDC 08/16/19= 37.3 postfall (on her butt) 08/04/2019 c complaints of decreased movement OB ultrasound. Technique: Transabdominal imaging was performed with bone scale and colorDoppler technique. Comparison: None. Ordering physician: KEN MORALES Location Code: 7827 Findings: There is a single living intrauterine gestation with heart rate [id number] beats/min. Biophysical profile score 8/8. Breathing was normal. Amniotic fluid indexmeasures 11.27 cm. Deepest pocket measures 4.25 cm. motion and tonenormal. Anterior placenta, grade 2. Cephalic presentation. Detailed anatomic surveywas not performed. [facility], Radiant Results Inft User - 08/05/2019 5:51 PM CSTClinical statement: Decreased movement EDC 08/16/19= 37.3 postfall (on her butt) 08/04/2019 c complaints of decreased movementOB ultrasound.Technique: Transabdominal imaging was performed with bone scale and colorDoppler technique.Comparison: None.Ordering physician: KEN MORALESLocation Code: 7827Findings:There is a single living intrauterine gestation with heart rate baxhwayu882 beats/min.Biophysical profile score 8/8. Breathing was normal. Amniotic fluid indexmeasures 11.27 cm. Deepest pocket measures 4.25 cm. motion and tonenormal.Anterior placenta, grade 2. Cephalic presentation. Detailed anatomic surveywas not performed.IMPRESSIONImpression: 1. Single living intrauterine gestation with heart rate of 133 bpm.2. Biophysical profile score 8/8.[facility] Code[facility] SPECIFIC [id number] 17:32:00 Test Item Value Reference Range Interpretation Comments POCT U SP GRAV (test code = . 1.005-1.025 3255) POCT PH U (test code = 3254) . 5-8 POCT U LEUK EST (test code = . Negative - Negative 3263) POCT U NIT (test code = 3262) . Negative - Negative POCT U PROT (test code = 3259) trace Negative - Negative POCT U GLU (test code = 3256) negative Negative - Negative POCT U KETONE (test code = 3258) . Negative - Negative POCT U UROBILI (test code = . 0.2-1 3260) POCT U BILI (test code = 3261) . Negative - Negative POCT U BLD (test code = 3257) . Negative - Negative POCT U COLOR (test code = 3266) POCT U APPEAR (test code = 3267) [facility] URINALYSIS W SPECIFIC [id number] 17:32:00 Test Item Value Reference Range Interpretation Comments POCT U SP GRAV (test code = . 1.005-1.025 3255) POCT PH U (test code = 3254) . 5-8 POCT U LEUK EST (test code = . Negative - Negative 3263) POCT U NIT (test code = 3262) . Negative - Negative POCT U PROT (test code = 3259) trace Negative - Negative POCT U GLU (test code = 3256) negative Negative - Negative POCT U KETONE (test code = 3258) . Negative - Negative POCT U UROBILI (test code = . 0.2-1 3260) POCT U BILI (test code = 3261) . Negative - Negative POCT U BLD (test code = 3257) . Negative - Negative POCT U COLOR (test code = 3266) POCT U APPEAR (test code = 3267) [facility] URINALYSIS W SPECIFIC [id number] 15:11:00 Test Item Value Reference Range Interpretation Comments POCT U SP GRAV (test code = . 1.005-1.025 3255) POCT PH U (test code = 3254) 5 mg/dl 5-8 POCT U LEUK EST (test code = 1+ Negative - Negative 3263) POCT U NIT (test code = 3262) pos Negative - Negative POCT U PROT (test code = 3259) 3+ Negative - Negative POCT U GLU (test code = 3256) trace Negative - Negative POCT U KETONE (test code = 3258) small Negative - Negative POCT U UROBILI (test code = . 0.2-1 3260) POCT U BILI (test code = 3261) . Negative - Negative POCT U BLD (test code = 3257) small Negative - Negative POCT U COLOR (test code = 3266) POCT U APPEAR (test code = 3267) Lab Interpretation (test code = Abnormal 51720-2) [facility] URINALYSIS W SPECIFIC [id number] 15:11:00 Test Item Value Reference Range Interpretation Comments POCT U SP GRAV (test code = . 1.005-1.025 3255) POCT PH U (test code = 3254) 5 mg/dl 5-8 POCT U LEUK EST (test code = 1+ Negative - Negative 3263) POCT U NIT (test code = 3262) pos Negative - Negative POCT U PROT (test code = 3259) 3+ Negative - Negative POCT U GLU (test code = 3256) trace Negative - Negative POCT U KETONE (test code = 3258) small Negative - Negative POCT U UROBILI (test code = . 0.2-1 3260) POCT U BILI (test code = 3261) . Negative - Negative POCT U BLD (test code = 3257) small Negative - Negative POCT U COLOR (test code = 3266) POCT U APPEAR (test code = 3267) Lab Interpretation (test code = Abnormal 16590-8) [facility] W SPECIFIC [id number] 15:11:00 Test Item Value Reference Range Interpretation Comments POCT U SP GRAV (test code = . 1.005-1.025 3255) POCT PH U (test code = 3254) 5 mg/dl 5-8 POCT U LEUK EST (test code = 1+ Negative - Negative 3263) POCT U NIT (test code = 3262) pos Negative - Negative POCT U PROT (test code = 3259) 3+ Negative - Negative POCT U GLU (test code = 3256) trace Negative - Negative POCT U KETONE (test code = 3258) small Negative - Negative POCT U UROBILI (test code = . 0.2-1 3260) POCT U BILI (test code = 3261) . Negative - Negative POCT U BLD (test code = 3257) small Negative - Negative POCT U COLOR (test code = 3266) POCT U APPEAR (test code = 3267) Lab Interpretation (test code = Abnormal 62327-7) [facility] CenterGAL ONLY - SYPHILIS [id number] 14:49:00 Test Item Value Reference Range Interpretation Comments Syphilis IgG/IgM (test Non-reactive Non-reactive code = 25284-1) THAO (test code = THAO) Non-reactive - No serologic evidence of T. pallidum infection. Cannot exclude incubating or early syphilis. Submit a second specimen in 2-4 weeks if syphilis is clinically suspected.Equivocal - Further testing to follow.Reactive - Further testing to follow. Lab Interpretation (test Normal code = 74265-6) [facility] CenterHI 1/2 AG-AB WITH [id number] 10:26:00 Test Item Value Reference Range Interpretation Comments HIV Negative Negative Semi-quantitative (test code = 14048-5) THAO (test code = Non-reactive for HIV-1 THAO) antigen and HIV-1/HIV-2 antibodies.?No laboratory evidence of HIV infection.?Repeat in 2-4 weeks if acute HIV infection is suspected. [facility] [id number] 05:02:00 Test Item Value Reference Range Interpretation Comments HCV Semi-Quantitative (test code = 88849-2) [facility] [id number] 04:45:00 Test Item Value Reference Range Interpretation Comments HBsAg Semi-Quantitative (test code = 5195-3) [facility], BLOOD [id number] 04:15:41 Test Item Value Reference Range Interpretation Comments ABO & RH (test code A POSITIVE Performe d at [facility] = 20) [facility] Blood Bank3 [address] [facility] s [id number] Free: [phone] A No. [id number] IAT (test code = Negative Performed a t [facility] 1185) [facility] Blood [facility]3 [address] [facility] s [id number] Free: [phone] A No. [id number] [facility] WITH [id number] 03:07:00 Test Item Value Reference Range Interpretation Comments WBC (test code = See_Comment [Automated 7390-2) message] The sy stem which generated this result transmitted reference range : 4.30 - 11.10 10*3/?L. The reference range was not used to interpret this result as normal/abnormal . RBC (test code = See_Comment [Automated 099-8) message] The sy stem which generated this result transmitted reference range : 3.93 - 5.25 10*6/?L. The reference range was not used to interpret this result as normal/abnormal . HGB (test code = 13.8 g/dL 11.6-15 718-7) HCT (test code = 41.7 % 35.7-45.2 4544-3) MCV (test code = 89.3 fL 80.6-95.5 787-2) MCH (test code = 29.6 pg 25.9-32.8 785-6) MCHC (test code = 33.1 g/dL 31.6-35.1 786-4) RDW-SD (test code = 37.5 fL 39-49.9 L 18447-6) RDW-CV (test code = 11.5 % 12-15.5 L 788-0) PLT (test code = See_Comment [Automated 777-3) message] The sy stem which generated this result transmitted reference range : 166 - 358 10*3/ ?L. The reference r estefanía was not used to interpret this result as normal/abnormal . MPV (test code = 11.7 fL 9.5-12.9 44011-9) NRBC/100 WBC (test See_Comment [Automat ed code = [id number]) message] The system which generated this result transmitted reference range : 0.0 - 10.0 /100 WBCs. The refer ence range was not u sed to interpret th is result as normal/abnormal . NRBC x10^3 (test code <0.01 See_Comment [Auto mated = [id number]) message] The s ystem which generated this result transmitted reference range : 10*3/?L. The reference range was not used to interpret this result as normal/abnormal . GRAN MAT (NEUT) % 76.3 % (test code = 770-8) IMM GRAN % (test code 0.10 % = 3507968957) LYMPH % (test code = 18.2 % 736-9) MONO % (test code = 4.3 % 5905-5) EOS % (test code = 0.7 % 713-8) BASO % (test code = 0.4 % 706-2) GRAN MAT x10^3(ANC) 6.94 10*3/uL 1.88-7.09 (test code = 5133190695) IMM GRAN x10^3 (test <0.03 0-0.06 code = 9279395382) LYMPH x10^3 (test code 1.66 10*3/uL 1.32-3.29 = 731-0) MONO x10^3 (test code 0.39 10*3/uL 0.33-0.92 = 742-7) EOS x10^3 (test code = 0.06 10*3/uL 0.03-0.39 711-2) BASO x10^3 (test code 0.04 10*3/uL 0.01-0.07 = 704-7) Lab Interpretation Abnormal (test code = 80491-6) [facility] URINALYSIS W/O SPECIFIC [id number] 14:06:00 Test Item Value Reference Range Interpretation Comments POCT PH U (test code = 3254) 6 mg/dl 5-8 POCT U LEUK EST (test code = 1+ Negative - Negative 3263) POCT U NIT (test code = 3262) Pos Negative - Negative POCT U PROT (test code = 3259) 2+ Negative - Negative POCT U GLU (test code = 3256) Neg Negative - Negative POCT U KETONE (test code = 3258) Small Negative - Negative POCT U BLD (test code = 0147) Neg Negative - Negative [facility] [id number] 14:02:00 Test Item Value Reference Range Interpretation Comments POCT PREG (test code = 1605) Positive On board controls acceptable with C Yes Line (test code = 3574) POCT PREG LOT # (test code = 3575) POCT PREG TEST DATE (test code = 3576) [facility]
[2021-06-01] MEDS ORDERED: ACETAMINOPHEN 500 MG TAB ONE (15:07)
[2021-06-01] MEDS ORDERED: ONDANSETRON 4 MG (ODT) TAB ONE (15:09)
[2021-06-01 16:12] LABS: SARS-COV-2 RT PCR NEGATIVE (NEGATIVE)
--- NOTE | 2021-06-01 17:45 | EDPHYS ---
Physician Documentation [facility] Name: Sari Sparks Age: 30 yrs Sex: Female : 1990 Arrival Date: 06/01/2021 Time: 14:36 Bed Waiting Private MD: STONEY Physician Dmitri Ryder HPI: 06/01 16:00 This 30 yrs old Female presents to ER via Ambulatory with complaints of Sore cp Throat, Cough. 16:00 The patient or guardian reports cough, that is constant. cp 16:00 Onset: The symptoms/episode began/occurred 2 week(s) ago. Severity of symptoms: in the emergency department the symptoms are unchanged, despite home interventions. Associated signs and symptoms: Pertinent positives: nausea, sore throat, Pertinent negatives: chest pain, diarrhea, fever, vomiting. 16:00 Patient reports she is currently and denies abdominal pain, vaginal bleeding cp and/or leakage of fluids. 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 - Social history:: Smoking status: Patient denies any tobacco usage or history of. Patient/guardian denies using alcohol, street drugs. ROS: 16:05 Constitutional: Negative for body aches, chills, fever, poor PO intake. cp 16:05 Eyes: Negative for injury, pain, redness, and discharge. cp 16:05 ENT: Positive for sore throat, Negative for drainage from ear(s), ear pain, difficulty swallowing, difficulty handling secretions. 16:05 Cardiovascular: Negative for chest pain, palpitations. 16:05 Respiratory: Positive for cough, with no reported sputum. 16:05 Abdomen/GI: Positive for nausea, Negative for abdominal pain, vomiting, diarrhea, constipation. 16:05 Neuro: Negative for altered mental status, headache, weakness. 16:05 All other systems are negative. Exam: 16:10 Constitutional: The patient appears in no acute distress, alert, awake, cp non-diaphoretic, non-toxic, well developed, well nourished, obese. 16:10 Head/Face: Normocephalic, atraumatic. cp 16:10 Eyes: Periorbital structures: appear normal, Conjunctiva: normal, no exudate, no injection, Sclera: no appreciated abnormality, Lids and lashes: appear normal, bilaterally. 16:10 ENT: External ear(s): are unremarkable, Nose: is normal, Mouth: Lips: moist, Oral mucosa: pink and intact, moist, Posterior pharynx: Airway: no evidence of obstruction, patent, Tonsils: no enlargement, no exudate, Uvula: midline, swelling, is not appreciated, erythema, is not appreciated, exudate, is not appreciated. 16:10 Neck: ROM/movement: is normal, is supple, without pain, no range of motions limitations, no meningismus. 16:10 Chest/axilla: Inspection: normal, Palpation: is normal, no crepitus, no tenderness. 16:10 Cardiovascular: Rate: normal, Rhythm: regular. 16:10 Respiratory: the patient does not display signs of respiratory distress, Respirations: normal, no use of accessory muscles, no retractions, labored breathing, is not present, Breath sounds: bronchial sounds, that are mild, are heard diffusely, decreased breath sounds, are not appreciated, stridor, is not appreciated, wheezing: is not appreciated. 16:10 Abdomen/GI: Exam negative for discomfort, distension, guarding, Inspection: abdomen appears normal. 16:10 Back: pain, is absent, ROM is normal. 16:10 Neuro: Orientation: to person, place \\T\\ time. Mentation: is normal, Motor: moves all fours, strength is normal, Sensation: is normal. Vital Signs: 15:00 BP 136 / 65; Pulse 97; Resp 18; Temp 97.5(O); Pulse Ox 99% on R/A; Weight 102.06 kg; ld1 Height 5 ft. 7 in. (170.18 cm); Pain 0/10; 15:00 Body Mass Index 35.24 (102.06 kg, 170.18 cm) ld1 MDM: 16:00 Differential Diagnosis: Bronchitis Influenza Upper Respiratory Infection Sinusitis cp Otitis Media Viral Syndrome Pneumonia. 17:44 Patient medically screened. cp 17:44 Data reviewed: vital signs, nurses notes, lab test result(s). cp 17:44 Counseling: I had a detailed discussion with the patient and/or guardian regarding: the cp historical points, exam findings, and any diagnostic results supporting the discharge/admit diagnosis, lab results, the need for outpatient follow up, an OB/Gyne specialist, to return to the emergency department if symptoms worsen or persist or if there are any questions or concerns that arise at home. ED course: VSS. Patient appears non-toxic and no signs of respiratory distress. 06/01 15:06 Order name: Strep; Complete Time: 16:35 ld1 06/01 16:35 Interpretation: Reviewed. cp 06/01 15:16 Order name: COVID-19/FLU A+B/RSV (Document "Date of Onset" if Symptomatic) ss 06/01 15:28 Order name: COVID-19/FLU A+B/RSV; Complete Time: 16:35 EDMS 06/01 16:35 Interpretation: Reviewed. cp 06/01 16:06 Order name: Throat Culture EDMS Administered Medications: 15:13 Drug: Tylenol 1000 mg Route: PO; ld1 15:13 Drug: Ondansetron 4 mg Route: PO; ld1 Disposition: 06/02 09:19 Co-signature as Attending Physician, Dmitri Ryder MD I agree with the assessment and juliano plan of care. Disposition Summary: 06/01/21 17:44 Discharge Ordered Location: Home cp Problem: new cp Symptoms: are unchanged cp Condition: Stable cp Diagnosis - Acute bronchitis, unspecified cp Followup: cp - With: Private Physician - When: 2 - 3 days - Reason: Recheck today's complaints Discharge Instructions: - Discharge Summary Sheet cp - Acute Bronchitis, Adult cp Forms: - Medication Reconciliation Form cp - Thank You Letter cp - Antibiotic Education cp - Prescription Opioid Use cp Prescriptions: - albuterol sulfate 90 mcg/actuation Inhalation HFA aerosol inhaler - inhale 1 puff by INHALATION route every 4-6 hours As needed; 1 Inhaler; cp Refills: 0, Product Selection Permitted - Albuterol Sulfate 2.5 mg /3 mL (0.083 %) Inhalation Solution for Nebulization - inhale 1 unit by NEBULIZATION route every 8 hours As needed; 1 box; Refills: 0, cp Product Selection Permitted - Zithromax Z-Prateek 250 mg Oral Tablet - take 1 tablet by ORAL route as directed for 5 days Day 1 - take two (2) tablets cp one time. Day 2, 3, 4 , 5 take one (1) tablet once daily.; 6 tablet; Refills: 0, Product Selection Permitted Signatures: Dispatcher [employer] EDMS Dmitri Ryder MD MD cha Page, Corey, PA PA cp Radha Rojas RN RN ld1 Corrections: (The following items were deleted from the chart) 06/01 15:27 15:12 Respiratory Syncytial Virus Ag+BA.LAB.BRZ ordered. EDMS EDMS 15: 15:16 COVID-19/FLU A+B/RSV ordered. EDMS EDMS 15:28 15:07 COVID-19/FLU A+B+MOL.LAB.BRZ ordered. EDMS EDMS 06/02 13:04 06/01 16:00 Associated signs and symptoms: Pertinent negatives: chest pain, diarrhea, cp fever, vomiting, cp
--- NOTE | 2021-06-01 17:45 | ER ---
Nurse's Notes [facility] Name: Sari Sparks Age: 30 yrs Sex: Female : 1990 Arrival Date: 06/01/2021 Time: 14:36 Bed Waiting Private MD: Diagnosis: Acute bronchitis, unspecified Presentation: 06/01 15:00 Chief complaint: Patient states: Cough and sore throat for two weeks - I feel better ld1 during the day but during the morning I can't talk. Coronavirus screen: Client presents with at least one sign or symptom that may indicate coronavirus-19. Standard/surgical mask placed on the client. Ebola Screen: No symptoms or risks identified at this time. Initial Sepsis Screen: Does the patient meet any 2 criteria? No. Patient's initial sepsis screen is negative. Does the patient have a suspected source of infection? No. Patient's initial sepsis screen is negative. Risk Assessment: Do you want to hurt yourself or someone else? Patient reports no desire to harm self or others. Onset of symptoms was June 01, 2021 at 15:03. 15:00 Method Of Arrival: Ambulatory ld1 15:00 Acuity: LENNY 4 ld1 Triage Assessment: 15:03 General: Appears in no apparent distress. comfortable, Behavior is calm, cooperative, ld1 appropriate for age. Pain: Denies pain. EENT: Reports sore throat. Neuro: Level of Consciousness is awake, alert, obeys commands, Oriented to person, place, time, situation, Appropriate for age. Cardiovascular: Capillary refill < 3 seconds Patient's skin is warm and dry. Respiratory: Reports cough that is non-productive, Airway is patent Respiratory effort is even, unlabored, Respiratory pattern is regular, symmetrical. GI: Abdomen is round non-distended. : No signs and/or symptoms were reported regarding the genitourinary system. :. Derm: No signs and/or symptoms reported regarding the dermatologic system. Musculoskeletal: No signs and/or symptoms reported regarding the musculoskeletal system. 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 - Social history:: Smoking status: Patient denies any tobacco usage or history of. Patient/guardian denies using alcohol, street drugs. Screenin:51 Abuse screen:. Nutritional screening: No deficits noted. Tuberculosis screening: No ld1 symptoms or risk factors identified. Fall Risk None identified. Assessment: 17:51 Reassessment: Patient appears in no apparent distress at this time. see triage ld1 assessment. Vital Signs: 15:00 BP 136 / 65; Pulse 97; Resp 18; Temp 97.5(O); Pulse Ox 99% on R/A; Weight 102.06 kg; ld1 Height 5 ft. 7 in. (170.18 cm); Pain 0/10; 15:00 Body Mass Index 35.24 (102.06 kg, 170.18 cm) ld1 ED Course: 14:36 Patient arrived in ED. kc5 15:03 Triage completed. ld1 15:03 Arm band placed on right wrist. Patient placed. ld1 15:06 Dmitri Ortiz PA is PHCP. cp 15:06 Dmitri Ryder MD is Attending Physician. cp 15:20 Strep Sent. ld1 17:51 Patient has correct armband on for positive identification. Call light in reach. ld1 17:51 No provider procedures requiring assistance completed. Patient did not have IV access ld1 during this emergency room visit. Administered Medications: 15:13 Drug: Tylenol 1000 mg Route: PO; ld1 15:13 Drug: Ondansetron 4 mg Route: PO; ld1 Outcome: 17:44 Discharge ordered by MD. cp 17:51 Discharged to home ambulatory. ld1 17:51 Condition: stable 17:51 Discharge instructions given to patient, Instructed on discharge instructions, follow up and referral plans. medication usage, Demonstrated understanding of instructions, follow-up care, medications, Prescriptions given X 3. 17:52 Patient left the ED. ld1 Signatures: Dmitri Ortiz PA PA cp Radha Rojas RN RN ld1 Anyi Alston kc5 Corrections: (The following items were deleted from the chart) 15:27 15:20 Respiratory Syncytial Virus Ag+BA.LAB.BRZ drawn and sent. ld1 EDMS 15:28 15:20 COVID-19/FLU A+B+MOL.LAB.BRZ drawn and sent. ld1 STONEYMS
[2021-06-01 18:15] VITALS: BP 136/65; TEMP 97.5; O2SAT 99
== END 2021-06-01 17:52 | disposition home or self-care (01) ==
LOC: ER 14:31
DX: O26.899 Other specified pregnancy related conditions, unspecified trimester (principal); J20.9 Acute bronchitis, unspecified; Z20.822 Contact with and (suspected) exposure to COVID-19
CPT/HCPCS: 87070; 87081; 0241U; 99283

== ENCOUNTER 2021-12-28 10:34 | Inpatient (IN) | payer OTHER ==
[2021-12-28] MEDS ORDERED: Ringers Lactate 1,000 ML IV PRN (14:45)
[2021-12-28] MEDS ORDERED: METHYLERGONOVINE 0.2MG/ML AMP IM ONE (14:51)
[2021-12-28] MEDS ORDERED: BUTORPHANOL 1 MG/ML INJ IV PRN (14:52)
[2021-12-28] MEDS ORDERED: PROMETHAZINE INJ 25 MG/ML AMP IM PRN (14:53)
--- OUTSIDE RECORDS SUMMARY | 2021-12-28 14:56 | XMS REPORT | Continuity of Care Document ---
:1990 Author Organization [facility] t Address [address] [place] [address] [address]. [address] [place] [address] Care Team Providers Name Role Phone CHERIE NAVA Attending Clinician Unavailable Alena Ledesma Attending Clinician Pete Salinas MD Attending Clinician Doctor Unassigned, Name Attending Clinician Unavailable Nerissa Green Attending Clinician Leo Morales MD Attending Clinician Popeye MEDELLIN Attending Clinician Unavailable Lab Attending Clinician Unavailable Nerissa Mcgovren Attending Clinician 2, [facility] Attending Clinician Unavailable Alia Palomino MD Attending Clinician Lab Attending Clinician Unavailable Pete Salinas MD Admitting Clinician Leo Morales MD Admitting Clinician Payers Payer Name Policy Type Policy Number Effective Date Expiration Date Formerly [facility] [id number] 2018 CHOICE MEDICAID 00:00:00 Problems Condition Condition Condition Status Onset Resolution Last Treating Co mments Source Name Details Category Date Date Treatment Clinician Date Other Other Disease Active 2020-0 Univers general general 4-16 ity of counseling [place] and advice and advice 00 Me dical for for Branch contracept contracept memo memo management management Disease Active 2020-0 U nivers care and care and 3-06 ity of examinatio examinatio [place] n of n of 00 Medical lactating lactating Bran ch mother mother Disease Active 2020-0 Univers (spontaneo (spontaneo 2-15 it y of us vaginal us vaginal 00:[place] delivery) delivery[place] 00 [facility] Single Single Disease Active 2019- Univers liveborn liveborn 2-15 ity of 00:00: [place] 00 [facility] Labor and Labor and Disease Active Uni vers delivery delivery 2-14 ity of indication indication 00:[place] for care for care 00 Medica l or or Branch interventi interventi on on Upper Upper Disease Active Univers respirator respirator 2-10 it y of y symptom y symptom [place] [facility] Obesity Obesity Disease Active Univers (BMI (BMI 2-03 ity of 30-39.9) 30-39.9) 00:00: [place] 00 [facility] UTI UTI Disease Active Overview: Univer s (urinary (urinary 8 Nicole neg ity o f tract tract 00:00: [place] infection) infection) 00 Me dical during during [place] Supervisio Supervisio Disease Active 2018- U nivers n of n of 7-29 ity of high-risk high-risk 00:[place] [facility] Multiparit Multiparit Disease Active 2019 U nivers y y 7-29 ity of 00:00: [place] 00 [facility] History of History of Disease Active Overview : Univers oligohydra oligohydra 7-29 In it y of mnios mnios 00:00: previous [place] 00 Medical [place] Obesity in Obesity in Disease Active 2019- U nivers 7-29 ity of 00:00: [place] 00 [facility] Nausea and Nausea and Disease Active 2019- U nivers vomiting vomiting 7-29 ity of during during 00:00: [place] 00 [facility] prior to prior to [place] 22 weeks 22 weeks gestation gestation Supervisio Supervisio Disease Active 2015-07 U nivers n of other n of other 0-13 it y of high risk high risk 00:[place] , , 00 Me dical antepartum antepartum Br anch , second , second trimester trimester Nonspecifi Nonspecifi Disease Active Overview : Univers c c 9-06 Indetermi ity of serologic serologic 00:00: regi sánchez evidence evidence 00 [facility] human of human Blot--mos [facility] immunodefi immunodefi t likely ciency ciency false virus virus positive, (HIV) (HIV) but needs repeat testing in 1mo, 3 mo, 32 weeks, and 1 month postpartu m. Viral Viral Disease Active Overview: Univer s disease disease 03-08 Had ity of complicati complicati 00:00: travel to [place] ng ng 00 [place] in Medical [...] 03-08 it y of fever fever 00:00: [place] 00 Medical Branch History of History of Disease Active Overview : Univers foreign foreign 03-[address] [facility] o f travel travel 00:00: [place] in [place] 00 1st Medical trimester Branch , needs serial scans Screening Screening Disease Active Uni vers examinatio examinatio 03-01 it y of n for n for 00:00: [place] pulmonary pulmonary 00 Medi kobe tuberculos tuberculos Br anch is is Allergies, Adverse Reactions, Alerts Allergy Allergy Status Severity Reaction(s) Onset Inactive Treating Comm ents Source Name Type Date Date Clinician NO KNOWN Drug Active Univers ALLERGIE Class ity of S [place] [facility] Social History Social Habit Start Date Stop Date Quantity Comments Source ASSERTION 2018-11-30 [facility] 00:00:00 Medical Branch [facility] [place] [facility] Branch Alcohol intake 2019-10-17 2019-10-17 [facility] 00:00:00 00:00:00 Medical Branch Smoking Status Start Date Stop Date Source Never smoker [facility] Branch Medications Ordered Filled Start Stop Current Ordering Indication Dosage Frequency Signature Comments Components Source Medication Medication Date Date Medication? Clinician (SIG) Name Name norethindro Yes [id number] 1{tbl} Take 1 Univers ne 0.35 mg 3-27 tablet by ity of tablet 00:00: mouth [place] 00 daily. Medical Branch norethindro Yes [id number] 1{tbl} Take 1 Univers ne 0.35 mg 3-27 tablet by ity of tablet 00:00: mouth [place] 00 daily. Medical Branch rho(D) 2020-0 Yes 300ug 300 mcg, Univer s immune 2-15 Intramuscu ity of globulin 04:12: lar, ONCE, [place] (RHOGAM) 07 For 1 Medical syringe 300 dose, Branch mcg Conditiona l, Routine ondansetron 2020-0 Yes 4mg 4 mg, Slow Univers (ZOFRAN [...] Fri Branch tablet 160 08/16/19 at mg 2211, Until Discontinu ed, Routine, Gas magnesium 2020-0 Yes 30mL 30 mL, Univer s hydroxide 2-15 Oral, ity of (MILK OF 04:12: QDAILYPRN, [place] MAGNESIA) 03 Starting Medica l 400 mg/5 mL Fri Branch suspension 08/16/19 at 30 mL 2211, Until Discontinu ed, Routine, Constipati on human 2020-0 Yes .5mL 0.5 mL, Univers papillomav 2-15 Intramuscu ity of vac,9-devi(P 04:12: lar, [place] F) 02 ONCE-PRIOR Medical (GARDASIL-9 TO Branch ) syringe DISCHARGE, 0.5 mL 1 dose, Starting 08/16/19 at 2211, Until Discontinu ed, Routine, Give vaccine prior to discharge ibuprofen 2020-0 Yes 600mg 600 mg, Univ ers (IBU) 2-15 Oral, ity of tablet 600 04:12: Q6HPRN, [place] mg 02 Starting Medical Fri Branch 08/16/19 at 2211, Until Discontinu ed, Routine, Pain (scale 4-6) acetaminoph 2020-0 Yes 650mg 650 mg, Un matthew en 2-15 Oral, ity of (TYLENOL) 04:12: Q6HPRN, [place] tablet 650 02 Starting Medic al mg Fri Branch 08/16/19 at 2212, Until Discontinu ed, Routine, Pain (scale 1-3) diphenhydrA 2020-0 Yes 25mg 25 mg, Univ ers MINE 2-15 Oral, ity of (BENADRYL) 04:12: Q6HPRN, [place] tablet 25 02 Starting Medica l mg Fri Branch 08/16/19 at 2212, Until Discontinu ed, Routine, Sleep, Itching diphenhydrA 2020-0 Yes 25mg 25 mg, IV U nivers MINE-0.9 % 2-15 Piggyback, ity of sod.chlr 04:12: Administer [place] (BENADRYL) 02 over 30 Medica l 25 mg/50 mL Minutes, Bran ch piggyback Q6HPRN, 25 mg Starting 08/16/19 at 2211, Until Discontinu ed, Routine, Itching docusate 2020-0 Yes 240mg 240 mg, Unive rs calcium 2-15 Oral, ity of (SURFAK) 04:12: QDAILYPRN, [place] capsule 240 02 Starting Medi kobe mg Fri Branch 08/16/19 at 2212, Until Discontinu ed, [...] Solution 00 :00 ONCE, 1 Medical dose, Fri [place] 08/16/19 at 1945, Routine acetaminoph 2020-0 Yes 650mg 650 mg, Un matthew en 2-15 Oral, ity of (TYLENOL) 00:44: Q6HPRN, [place] tablet 650 46 Starting Medic al mg Fri Branch 08/16/19 at 1844, Until Discontinu ed, Routine, Pain (scale 1-3), Temp > 38.5 C 2020-0 Yes [id number] 1{tbl} Take 1 Univers vitamin 2-15 tablet by ity of w/FA tablet 00:00: mouth [place] 00 daily. Medical Branch docusate 2020-0 Yes [id number] 240mg Take 1 U nivers calcium 240 2-15 capsule by it y of mg capsule 00:00: mouth [place] 00 daily as Medical needed for Branch Constipati on. ferrous 2020-0 Yes [id number] 325mg Take 1 Un matthew sulfate 325 2-15 tablet by ity of mg (65 mg 00:00: mouth 2 [place] iron) 00 (two) Medical tablet times Branch daily. ibuprofen 2020-0 Yes [id number] 600mg Take 1 Univers 600 mg 2-15 tablet by ity of tablet 00:00: mouth [place] 00 every 6 Medical (six) Branch hours as needed (Pain). Take with food or milk. 2020-0 Yes [id number] 1{tbl} Take 1 Univers vitamin 2-15 tablet by ity of w/FA tablet 00:00: mouth [place] 00 daily. Medical Branch docusate 2020-0 Yes [id number] 240mg Take 1 U nivers calcium 240 2-15 capsule by it y of mg capsule 00:00: mouth once [place] 00 daily as Medical needed for Branch Constipati on. ferrous 2020-0 Yes [id number] 325mg Take 1 Un matthew sulfate 325 2-15 tablet by ity of mg (65 mg 00:00: mouth 2 [place] iron) 00 (two) Medical tablet times Branch daily. ibuprofen 2020-0 Yes [id number] 600mg Take 1 Univers 600 mg 2-15 tablet by ity of tablet 00:00: mouth [place] 00 every 6 Medical (six) Branch hours as needed (Pain). Take with food or milk. 2020-0 Yes [id number] 1{tbl} Take 1 Univers vitamin 2-15 tablet by ity of w/FA tablet 00:00: mouth [place] 00 daily. Medical Branch docusate 2020-0 Yes [id number] 240mg Take 1 U nivers calcium 240 2-15 capsule by it y of mg capsule 00:00: mouth [place] 00 daily as Medical needed for Branch Constipati on. ferrous 2020-0 Yes [id number] 325mg Take 1 Un matthew sulfate 325 2-15 tablet by ity of mg (65 mg 00:00: mouth 2 [place] iron) 00 (two) Medical tablet times Branch daily. ibuprofen 2020-0 Yes [id number] 600mg Take 1 Univers 600 mg 2-15 tablet by ity of tablet 00:00: mouth [place] 00 every 6 Medical (six) Branch hours as needed (Pain). Take with food or milk. 2020-0 Yes [id number] 1{tbl} Take 1 Univers vitamin 2-15 tablet by ity of w/FA tablet 00:00: mouth [place] 00 daily. Medical Branch docusate 2020-0 Yes [id number] 240mg Take 1 U nivers calcium 240 2-15 capsule by it y of mg capsule 00:00: mouth [place] 00 daily as Medical needed for Branch Constipati on. ferrous 2020-0 Yes [id number] 325mg Take 1 Un matthew sulfate 325 2-15 tablet by ity of mg (65 mg 00:00: mouth 2 [place] iron) 00 (two) Medical tablet times Branch daily. ibuprofen 2020-0 Yes [id number] 600mg Take 1 Univers 600 mg 2-15 tablet by ity of tablet 00:00: mouth [place] 00 every 6 Medical (six) Branch hours as needed (Pain). Take with food or milk. 2020-0 Yes [id number] 1{tbl} Take 1 Univers vitamin 2-15 tablet by ity of w/FA tablet 00:00: mouth [place] 00 daily. Medical Branch docusate 2020-0 Yes [id number] 240mg Take 1 U nivers calcium 240 2-15 capsule by it y of mg capsule 00:00: mouth [place] 00 daily as Medical needed for Branch Constipati on. ferrous 2020-0 Yes [id number] 325mg Take 1 Un matthew sulfate 325 2-15 tablet by ity of mg (65 mg 00:00: mouth 2 [place] iron) 00 (two) Medical tablet times Branch daily. ibuprofen 2020-0 Yes [id number] 600mg Take 1 Univers 600 mg 2-15 [...] dose, 08/16/19 at 1800, Routine FENTanyl PF 2019-0 2020- No 50ug 50 mcg, Un matthew (SUBLIMAZE 2-14 02-14 Slow IV ity o f (PF)) 23:45: 22:43 Push, [place] injection 00 :00 ONCE, 1 Medical 50 mcg dose, Fri [place] 08/16/19 at 1745, Routine LR 1000 mL 2020-0 Yes 2mU/min 2 Univ ers + oxytocin 2-14 tony-unit ity of 20 units IV 22:52: s/min (6 [place] Solution 49 mL/hr), at Medic al 6 mL/hr, Branch IV Infusion, TITRATE, Starting [facility] 08/16/19 at 1652, Until Discontinu ed, DIANE, Oxytocin Induction / Augmentati on of Labor. lactated 2020-0 Yes 500mL at 999 Univer s ringers IV 2-14 mL/hr, 500 ity of infusion 22:52: mL, IV [place] 500 mL 48 Infusion, Medical PRN - SEE [place] INSTRUCTIO NS, 1 dose, Starting [facility] 08/16/19 at 1652, Until Discontinu ed, Routine sodium 2020-0 2020- No 30mL 30 mL, Univers citrate-cit -16 08-14 Oral, ity of mone acid 22:52: 23:19 PRE-PROCED [place] (BICITRA) 48 :00 URE ONCE, Medic al 500-334 1 dose, Branch mg/5 mL Starting solution 30 Fri mL 08/16/19 at 1652, Until [facility] 08/16/19 at 1719, Routine, Surgery/Pr ocedure miSOPROStol 2020-0 2020- No 25ug 25 mcg, Un matthew (CYTOTEC) -08-16 Vaginal, ity o f tablet 25 15:30: 16:31 ONCE, 1 [place] mcg 00 :00 dose, Fri Medical 08/16/19 at Branch 0930, Routine D5W-LR IV 2020-0 Yes 1000mL at 125 Univ ers infusion 2-14 mL/hr, IV ity of 1,000 mL 13:45: Infusion, [place] 00 CONTINUOUS Medical , Starting Branch [facility] 08/16/19 at 0745, Until Discontinu ed, Routine [...] at 0738, Until Discontinu ed, Routine doxylamine- 2018-0 Yes [id number] 2{tbl} Take 2 Univers pyridoxine, 8-26 tablets by it y of vit B6, 00:00: mouth at [place] ([facility]) 00 bedtime. Medic al 10-10 mg Branch per tablet doxylamine- 2019-0 Yes [id number] 2{tbl} Take 2 Univers pyridoxine, 8-26 tablets by it y of vit B6, 00:00: mouth at [place] [facility] bed[facility]. Medic al 10-10 mg Branch per tablet doxylamine- 2019-0 Yes [id number] 2{tbl} Take 2 Univers pyridoxine, 8-26 tablets by it y of vit B6, 00:00: mouth at [place] [address] bedtime. Medic al 10-10 mg Branch per tablet doxylamine- 2019-0 Yes [id number] 2{tbl} Take 2 Univers pyridoxine, 8-26 tablets by it y of vit B6, 00:00: mouth at [facility] 00 bedtime. Medic al 10-10 mg Branch per tablet doxylamine- 2019-0 Yes [id number] 2{tbl} Take 2 Univers pyridoxine, 8-26 tablets by it y of vit B6, 00:00: mouth at [facility] 00 bedtime. Medic al 10-10 mg Branch per tablet doxylamine- 2019- Yes [id number] 2{tbl} Take 2 Univers pyridoxine, 8-26 tablets by it y of vit B6, 00:00: mouth at [facility] 00 bedtime. Medic al 10-10 mg Branch per tablet doxylamine- 2018- Yes [id number] 2{tbl} Take 2 Univers pyridoxine, 8-26 tablets by it y of vit B6, 00:00: mouth at [facility] 00 bedtime. Medic al 10-10 mg Branch per tablet doxylamine- 2018-0 Yes [id number] 2{tbl} Take 2 Univers pyridoxine, 8-26 tablets by it y of vit B6, 00:00: mouth at [place] [address] bedtime. Medic al 10-10 mg Branch per tablet doxylamine- 2018-0 Yes [id number] 2{tbl} Take 2 Univers pyridoxine, 8-26 tablets by it y of vit B6, 00:00: mouth at [facility] 00 bedtime. Medic al 10-10 mg Branch per tablet doxylamine- 2019-0 Yes [id number] 2{tbl} Take 2 Univers pyridoxine, 8-26 tablets by it y of vit B6, 00:00: mouth at [facility] 00 bedtime. Medic al 10-10 mg Branch per tablet doxylamine- 2019-0 Yes [id number] 2{tbl} Take 2 Univers pyridoxine, 8-26 tablets by it y of vit B6, 00:00: mouth at [facility] 00 bedtime. Medic al 10-10 mg Branch per tablet doxylamine- 2020- No [id number] 2{tbl} Take 2 Univers pyridoxine, 8-26 02-15 tablets by i ty of vit B6, 00:00: 00:00 mouth at [facility] 00 :00 bedtime. Medic al 10-10 mg Branch per tablet amoxicillin 2019- No [id number] 500mg Take 1 Univers 500 mg 8- 08-09 tablet by ity of tablet 00:00: 04:59 mouth 3 [place] 00 :00 (three) Medical times [place] daily for 7 days. amoxicillin 2019- No [id number] 500mg Take 1 Univers 500 mg 8-07 10-09 tablet by ity of tablet 00:00: 04:59 mouth 3 [place] 00 :00 (three) Medical times [place] daily for 7 days. amoxicillin 2019- No [id number] 500mg Take 1 Univers 500 mg 8- 08-09 tablet by ity of tablet 00:00: 04:59 mouth 3 [place] 00 :00 ([facility]) Medical times [place] daily for 7 days. amoxicillin 2019- No [id number] 500mg Take 1 Univers 500 mg 8- 08-09 tablet by ity of tablet 00:00: 04:59 mouth 3 [place] 00 :00 ([facility]) Medical times [place] daily for 7 days. Yes [id number] 1{tbl} Take 1 U nivers 48-iron-fol 7-29 tablet by ity of ic acid-B6 00:00: mouth [place] ([facility] 00 daily. Medica l B-CALM, FE Branch GLUC,) 20 mg iron-1 mg -25 mg/25 mg TbSQ doxylamine- Yes [id number] 2{tbl} Take 2 Univers pyridoxine, 7-29 tablets by it y of vit B6, 00:00: mouth at [place] ([facility] 00 bedtime. Medic al 10-10 mg Branch per tablet Yes [id number] 1{tbl} Take 1 U nivers 48-iron-fol 7-29 tablet by ity of ic acid-B6 00:00: mouth [place] ([facility] 00 daily. Medica l B-CALM, FE Branch GLUC,) 20 mg iron-1 mg -25 mg/25 mg TbSQ doxylamine- 2018- Yes [id number] 2{tbl} Take 2 Univers pyridoxine, 7-29 tablets by it y of vit B6, 00:00: mouth at [place] ([facility]) 00 bedtime. Medic al 10-10 mg Branch per tablet 2018-0 Yes [id number] 1{tbl} Take 1 U nivers 48-iron-fol 7-29 tablet by ity of ic acid-B6 00:00: mouth [place] ([facility] 00 daily. Medica l B-CALM, FE Branch GLUC,) 20 mg iron-1 mg -25 mg/25 mg TbSQ doxylamine- 2018- Yes [id number] 2{tbl} Take 2 Univers pyridoxine, 7-29 tablets by it y of vit B6, 00:00: mouth at [place] ([facility]) 00 bedtime. Medic al 10-10 mg Branch per tablet 2018- Yes [id number] 1{tbl} Take 1 U nivers 48-iron-fol 7-29 tablet by ity of ic acid-B6 00:00: mouth [place] ([facility] 00 daily. Medica l B-CALM, FE Branch GLUC,) 20 mg iron-1 mg -25 mg/25 mg TbSQ doxylamine- Yes [id number] 2{tbl} Take 2 Univers pyridoxine, 7-29 tablets by it y of vit B6, 00:00: mouth at [place] ([facility]) 00 bedtime. Medic al 10-10 mg Branch per tablet 2019-0 Yes [id number] 1{tbl} Take 1 U nivers 48-iron-fol 7-29 tablet by ity of ic acid-B6 00:00: mouth [place] ([facility] 00 daily. Medica l B-CALM, FE Branch GLUC,) 20 mg iron-1 mg -25 mg/25 mg TbSQ doxylamine- Yes [id number] 2{tbl} Take 2 Univers pyridoxine, 7-29 tablets by it y of vit B6, 00:00: mouth at [place] ([facility]) 00 bedtime. Medic al 10-10 mg Branch per tablet 2019-0 Yes [id number] 1{tbl} Take 1 U nivers 48-iron-fol 7-29 tablet by ity of ic acid-B6 00:00: mouth [place] ([facility] 00 daily. Medica l B-CALM, FE Branch GLUC,) 20 mg iron-1 mg -25 mg/25 mg TbSQ doxylamine- 2019-0 Yes [id number] 2{tbl} Take 2 Univers pyridoxine, 7-29 tablets by it y of vit B6, 00:00: mouth at [place] ([facility]) 00 bedtime. Medic al 10-10 mg Branch per tablet 2019-0 Yes [id number] 1{tbl} Take 1 U nivers 48-iron-fol 7-29 tablet by ity of ic acid-B6 00:00: mouth [place] ([facility] 00 daily. Medica l B-CALM, FE Branch GLUC,) 20 mg iron-1 mg -25 mg/25 mg TbSQ doxylamine- 2018- Yes [id number] 2{tbl} Take 2 Univers pyridoxine, 7-29 tablets by it y of vit B6, 00:00: mouth at [place] [facility] bed[facility]. Medic al 10-10 mg Branch per tablet 2019- Yes [id number] 1{tbl} Take 1 U nivers 48-iron-fol 7-29 tablet by ity of ic acid-B6 00:00: mouth [place] ([facility] 00 daily. Medica l B-CALM, FE Branch GLUC,) 20 mg iron-1 mg -25 mg/25 mg TbSQ doxylamine- 2019-0 Yes [id number] 2{tbl} Take 2 Univers pyridoxine, 7-29 tablets by it y of vit B6, 00:00: mouth at [place] ([facility]) 00 bedtime. Medic al 10-10 mg Branch per tablet 2019-0 Yes [id number] 1{tbl} Take 1 U nivers 48-iron-fol 7-29 tablet by ity of ic acid-B6 00:00: mouth [place] ([facility] 00 daily. Medica l B-CALM, FE Branch GLUC,) 20 mg iron-1 mg -25 mg/25 mg TbSQ doxylamine- 2019- Yes [id number] 2{tbl} Take 2 Univers pyridoxine, 7-29 tablets by it y of vit B6, 00:00: mouth at [place] ([facility]) 00 bedtime. Medic al 10-10 mg Branch per tablet 2019-0 Yes [id number] 1{tbl} Take 1 U nivers 48-iron-fol 7-29 tablet by ity of ic acid-B6 00:00: mouth [place] ([facility] 00 daily. Medica l B-CALM, FE Branch GLUC,) 20 mg iron-1 mg -25 mg/25 mg TbSQ doxylamine- 2019- Yes [id number] 2{tbl} Take 2 Univers pyridoxine, 7-29 tablets by it y of vit B6, 00:00: mouth at [place] ([facility]) 00 bedtime. Medic al 10-10 mg Branch per tablet 2019-0 Yes [id number] 1{tbl} Take 1 U nivers 48-iron-fol 7-29 tablet by ity of ic acid-B6 00:00: mouth [place] ([facility] 00 daily. Medica l B-CALM, FE Branch GLUC,) 20 mg iron-1 mg -25 mg/25 mg TbSQ doxylamine- Yes [id number] 2{tbl} Take 2 Univers pyridoxine, 7-29 tablets by it y of vit B6, 00:00: mouth at [place] ([facility]) 00 bedtime. Medic al 10-10 mg Branch per tablet 2018-0 Yes [id number] 1{tbl} Take 1 U nivers 48-iron-fol 7-29 tablet by ity of ic acid-B6 00:00: mouth [place] ([facility] 00 daily. Medica l B-CALM, FE Branch GLUC,) 20 mg iron-1 mg -25 mg/25 mg TbSQ doxylamine- 2019- Yes [id number] 2{tbl} Take 2 Univers pyridoxine, 7-29 tablets by it y of vit B6, 00:00: mouth at [place] ([facility]) 00 bedtime. Medic al 10-10 mg Branch per tablet 2019-0 Yes [id number] 1{tbl} Take 1 U nivers 48-iron-fol 7-29 tablet by ity of ic acid-B6 00:00: mouth [place] ([facility] 00 daily. Medica l B-CALM, FE Branch GLUC,) 20 mg iron-1 mg -25 mg/25 mg TbSQ doxylamine- 2018- Yes [id number] 2{tbl} Take 2 Univers pyridoxine, 7-29 tablets by it y of vit B6, 00:00: mouth at [place] ([facility]) 00 bedtime. Medic al 10-10 mg Branch per tablet 20190 Yes [id number] 1{tbl} Take 1 U nivers 48-iron-fol 7-29 tablet by ity of ic acid-B6 00:00: mouth [place] ([facility] 00 daily. Medica l B-CALM, FE Branch GLUC,) 20 mg iron-1 mg -25 mg/25 mg TbSQ doxylamine- Yes [id number] 2{tbl} Take 2 Univers pyridoxine, 7-29 tablets by it y of vit B6, 00:00: mouth at [place] ([facility]) 00 bedtime. Medic al 10-10 mg Branch per tablet Yes [id number] 1{tbl} Take 1 U nivers 48-iron-fol 7-29 tablet by ity of ic acid-B6 00:00: mouth [place] ([facility] 00 daily. Medica l B-CALM, FE Branch GLUC,) 20 mg iron-1 mg -25 mg/25 mg TbSQ doxylamine- Yes [id number] 2{tbl} Take 2 Univers pyridoxine, 7-29 tablets by it y of vit B6, 00:00: mouth at [place] ([facility]) 00 bedtime. Medic al 10-10 mg Branch per tablet 2019 Yes [id number] 1{tbl} Take 1 U nivers 48-iron-fol 7-29 tablet by ity of ic acid-B6 00:00: mouth [place] ([facility] 00 daily. Medica l B-CALM, FE Branch GLUC,) 20 mg iron-1 mg -25 mg/25 mg TbSQ doxylamine- Yes [id number] 2{tbl} Take 2 Univers pyridoxine, 7-29 tablets by it y of vit B6, 00:00: mouth at [place] ([facility]) 00 bedtime. Medic al 10-10 mg Branch per tablet 2019 Yes [id number] 1{tbl} Take 1 U nivers 48-iron-fol 7-29 tablet by ity of ic acid-B6 00:00: mouth [place] ([facility] 00 daily. Medica l B-CALM, FE Branch GLUC,) 20 mg iron-1 mg -25 mg/25 mg TbSQ doxylamine- 2018- Yes [id number] 2{tbl} Take 2 Univers pyridoxine, 7-29 tablets by it y of vit B6, 00:00: mouth at [place] ([facility]) 00 bedtime. Medic al 10-10 mg Branch per tablet 2018-0 Yes [id number] 1{tbl} Take 1 U nivers 48-iron-fol 7-29 tablet by ity of ic acid-B6 00:00: mouth [place] ([facility] 00 daily. Medica l B-CALM, FE Branch GLUC,) 20 mg iron-1 mg -25 mg/25 mg TbSQ doxylamine- Yes [id number] 2{tbl} Take 2 Univers pyridoxine, 7-29 tablets by it y of vit B6, 00:00: mouth at [place] ([facility]) 00 bedtime. Medic al 10-10 mg Branch per tablet Yes [id number] 1{tbl} Take 1 U nivers 48-iron-fol 7-29 tablet by ity of ic acid-B6 00:00: mouth [place] ([facility] 00 daily. Medica l B-CALM, FE Branch GLUC,) 20 mg iron-1 mg -25 mg/25 mg TbSQ doxylamine- Yes [id number] 2{tbl} Take 2 Univers pyridoxine, 7-29 tablets by it y of vit B6, 00:00: mouth at [place] ([facility]) 00 bedtime. Medic al 10-10 mg Branch per tablet 0 2020- No [id number] 1{tbl} Take 1 Univers 48-iron-fol 7-29 02-15 tablet by it y of ic acid-B6 00:00: 00:00 mouth [place] ([facility] 00 :00 daily. Medica l B-CALM, FE Branch GLUC,) 20 mg iron-1 mg -25 mg/25 mg TbSQ doxylamine- 0 2020- No [id number] 2{tbl} Take 2 Univers pyridoxine, 7-29 02-15 tablets by i ty of vit B6, 00:00: 00:00 mouth at [place] ([facility] :00 bedtime. Medic al 10-10 mg [...] Medical mg-300 mg Branch combo pack CIT[facility] 2015-07- No Univer s ASSURE 35 0-14 -28 [...] Branch ACID,) 29-1 mg Chew PNV without 2016 Yes 1{tbl} Take 1 Un matthew Ca-Iron 0-13 tablet by ity of PsCmplx-FA 00:00: mouth [place] (SELECT-[facility], 00 daily. Medica l FOLIC Branch ACID,) 29-1 mg Chew PNV without 2016 Yes 1{tbl} Take 1 Un matthew Ca-Iron 0-13 tablet by ity of PsCmplx-FA 00:00: mouth [place] (SELECT-[facility], 00 daily. Medica l FOLIC Branch ACID,) 29-1 mg Chew PNV without 2016 Yes 1{tbl} Take 1 Un matthew Ca-Iron 0-13 tablet by ity of PsCmplx-FA 00:00: mouth [place] (SELECT-OB, 00 daily. Medica l FOLIC Branch ACID,) 29-1 mg Chew PNV without 2015- Yes 1{tbl} Take 1 Un matthew Ca-Iron [...] po ity of (DICLEGIS) 00:00[place] 10[place] mg 00 take an [...] in the afternoon prn nausea/vom iting doxylamine- Yes Take 2 Univ ers pyridoxine 9-27 tablets po ity of (DICLEGIS) 00:00: q hs, [place] 10-10 mg 00 take an Medical per tablet additional Bra nch 1 tablet in the morning and 1 tablet in the afternoon prn nausea/vom iting doxylamine- Yes Take 2 Univ ers pyridoxine 9-27 tablets po ity of (DICLEGIS) 00:00: q hs, [place] 10[place]10 mg 00 take an Medical per tablet additional Bra nch 1 tablet in the morning and 1 tablet in the afternoon prn nausea/vom iting doxylamine- 0 Yes Take 2 Univ ers pyridoxine 9-27 [...] in the afternoon prn nausea/vom iting doxylamine- 20160 Yes Take 2 Univ ers pyridoxine 9-27 [...] in the afternoon prn nausea/vom iting doxylamine- Yes Take 2 Univ ers pyridoxine 9-27 tablets po ity of (DICLEGIS) 00:00: q hs, [place] 10[place]10 mg 00 take an Medical per tablet additional Bra nch 1 tablet in the morning and 1 tablet in the afternoon prn nausea/vom iting doxylamine- Yes Take 2 Univ ers pyridoxine 9-27 tablets po ity of (DICLEGIS) 00:00: q hs, [place] 10-10 mg 00 take an Medical per tablet additional Bra nch 1 tablet in the morning and 1 tablet in the afternoon prn nausea/vom iting doxylamine- 0 Yes Take 2 Univ ers pyridoxine 9-27 tablets po ity of (DICLEGIS) 00:00: q hs, [place] 10-10 mg 00 take an Medical per tablet additional Bra nch 1 tablet in the morning and 1 tablet in the afternoon prn nausea/vom iting doxylamine- 0 Yes Take 2 Univ ers pyridoxine 9-27 tablets po ity of (DICLEGIS) 00:00: q hs, [place] 10-10 mg 00 take an Medical per tablet additional Bra nch 1 tablet in the morning and 1 tablet in the afternoon prn nausea/vom iting doxylamine- 2020- No Take 2 Uni vers pyridoxine 9-27 01-28 tablets po it y of (DICLEGIS) 00:00: [...] Immunizations Ordered Filled Immunization Date Status Comments [facility] e Immunization Name Name [facility] 2019-06-03 Completed University of 00:00:00 [facility] 2019-06-03 Completed University of 00:00:00 [facility] Tdap 2019-06-03 Completed University of 00:00:00 [facility] Tdap 2019-06-03 Completed University of 00:00:00 [facility] Tdap 2019-06-03 Completed University of 00:00:00 [facility] Tdap 2019-06-03 Completed University of 00:00:00 [facility] Tdap 2019-06-03 Completed University of 00:00:00 [facility] Tdap 2019-06-03 Completed [facility] 00:00:00 [facility] Tdap 2019-06-03 Completed [facility] Completed University of 00:00:00 [facility] [place] Tdap 2019-06-03 Completed University of 00:00:00 [facility] [place] Tdap 2019-06-03 Completed University of 00:00:00 [facility] [place] Influenza Virus 2019-05-14 Completed Universit y of [...] 00:00:00 [facility] 6+ MO [facility] PPD (TB) 2016-03-01 Completed University of 00:00:00 [facility] PPD (TB) 2016-03-01 Completed University of 00:00:00 [facility] PPD (TB) 2016-03-01 Completed University of 00:00:00 [facility] PPD (TB) 2016-03-01 Completed University of 00:00:00 [facility] PPD (TB) 2016-03-01 Completed University of 00:00:00 [facility] PPD (TB) 2016-03-01 Completed University of 00:00:00 [facility] PPD (TB) 2016-03-01 Completed University of 00:00:00 [facility] PPD (TB) 2016-03-01 Completed University of 00:00:00 [facility] Branch PPD (TB) 2016-03-01 Completed University of 00:00:00 [facility] PPD (TB) 2016-03-01 Completed University of 00:00:00 [facility] Branch PPD (TB) 2016-03-01 Completed University of 00:00:00 [facility] PPD (TB) 2016-03-01 Completed University of 00:00:00 [facility] Branch PPD (TB) 2016-03-01 Completed University of 00:00:00 [facility] PPD (TB) 2016-03-01 Completed University of 00:00:00 [facility] PPD (TB) 2016-03-01 Completed University of 00:00:00 [facility] PPD (TB) 2016-03-01 Completed University of 00:00:00 [facility] PPD (TB) 2016-03-01 Completed University of 00:00:00 [facility] PPD (TB) 2016-03-01 Completed University of 00:00:00 [facility] Branch PPD (TB) 2016-03-01 Completed University of 00:00:00 [facility] PPD (TB) 2016-03-01 Completed University of 00:00:00 [facility] PPD (TB) 2016-03-01 Completed University of 00:00:00 [facility] PPD (TB) 2016-03-01 Completed University of 00:00:00 [facility] Branch PPD (TB) 2016-03-01 Completed University of 00:00:00 [facility] PPD (TB) 2016-03-01 Completed University of 00:00:00 [facility] PPD (TB) 2016-03-01 Completed University of 00:00:00 [facility] Vital Signs Vital Name Observation Time Observation Value Comments Source Systolic blood 2019-09-06 19:27:00 109 mm[Hg] Univer sity of pressure [facility] Diastolic blood 2019-09-06 19:27:00 68 mm[Hg] Unive rsity of pressure [facility] Heart rate 2019-09-06 19:27:00 78 /min Universi ty of [facility] Body temperature 2019-09-06 19:27:00 36.11 Leilani Univ ersity of [facility] Branch Respiratory rate 2019-09-06 19:27:00 16 /min Univ ersity of [facility] Body height 2019-09-06 19:27:00 170.2 cm Universi ty of [facility] Body weight 2019-09-06 19:27:00 96.871 kg Universi ty of [facility] BMI 2019-09-06 19:27:00 33.45 kg/m2 Universi ty of [facility] Systolic blood 2019-08-17 22:00:00 116 mm[Hg] Univer sity of [facility] Diastolic blood 2019-08-17 22:00:00 71 mm[Hg] Unive rsity of pressure [facility] Heart rate 2019-08-17 22:00:00 72 /min Universi ty of [facility] Body temperature 2019-08-17 22:00:00 36.78 Leilani Univ ersity of [facility] Respiratory rate 2019-08-17 22:00:00 18 /min Univ ersity of [facility] Oxygen saturation in 2019-08-17 22:00:00 98 /min University of Arterial blood by [facility] Pulse oximetry Branch Body height 2019-08-16 13:48:00 170.2 cm Universi ty of [facility] Body weight 2019-08-16 13:48:00 101.56 kg Universi ty of [facility] BMI 2019-08-16 13:48:00 35.07 kg/m2 Universi ty of [facility] Systolic blood 2019-08-12 16:33:00 103 mm[Hg] Univer sity of [facility] Diastolic blood 2019-08-12 16:33:00 63 mm[Hg] Unive rsity of pressure [facility] Heart rate 2019-08-12 16:33:00 84 /min Universi ty of [facility] Body temperature 2019-08-12 16:33:00 37.11 Leilani Univ ersity of [facility] Respiratory rate 2019-08-12 16:33:00 16 /min Univ ersity of [facility] Body height 2019-08-12 16:33:00 170.2 cm Universi ty of [facility] Body weight 2019-08-12 16:33:00 101.379 kg Universi ty of [facility] BMI 2019-08-12 16:33:00 35.01 kg/m2 Universi ty of [facility] Branch Systolic blood 2019-08-06 17:07:00 111 mm[Hg] Univer sity of pressure [facility] Diastolic blood 2019-08-06 17:07:00 64 mm[Hg] Unive rsity of pressure [facility] Heart rate 2019-08-06 17:07:00 87 /min Universi ty of [facility] Body temperature 2019-08-06 17:07:00 36.33 Leilani Univ ersity of [facility] Respiratory rate 2019-08-06 17:07:00 16 /min Univ ersity of [facility] Body height 2019-08-06 17:07:00 170.2 cm Universi ty of [facility] Body weight 2019-08-06 17:07:00 100.897 kg Universi ty of [facility] BMI 2019-08-06 17:07:00 34.84 kg/m2 Universi ty of [facility] Heart rate 2019-08-06 02:20:00 86 /min Universi ty of [facility] Oxygen saturation in 2019-08-06 02:20:00 100 /min University of Arterial blood by [facility] Pulse oximetry Branch Systolic blood 2019-08-05 21:30:00 119 mm[Hg] Univer sity of pressure [facility] Diastolic blood 2019-08-05 21:30:00 61 mm[Hg] Unive rsity of [facility] Body temperature 2019-08-05 21:30:00 36.78 Leilani Univ ersity of [facility] Respiratory rate 2019-08-05 21:30:00 16 /min Univ ersity of [facility] Body height 2019-08-05 21:30:00 170.2 cm Universi ty of [facility] Body weight 2019-08-05 21:30:00 102.059 kg Universi ty of [facility] Branch BMI 2019-08-05 21:30:00 35.24 kg/m2 Universi ty of [facility] Systolic blood 2019-07-30 17:13:00 107 mm[Hg] Univer sity of pressure [facility] Diastolic blood 2019-07-30 17:13:00 66 mm[Hg] Unive rsity of [facility] Heart rate 2019-07-30 17:13:00 62 /min Universi ty of [facility] Body temperature 2019-07-30 17:13:00 36.67 Leilani Univ ersity of [facility] Respiratory rate 2019-07-30 17:13:00 16 /min Univ ersity of [facility] Body height 2019-07-30 17:13:00 170.2 cm Universi ty of [facility] Body weight 2019-07-30 17:13:00 100.358 kg Universi ty of [facility] BMI 2019-07-30 17:13:00 34.65 kg/m2 Universi ty of [facility] Systolic blood 2019-07-16 17:01:00 113 mm[Hg] Univer sity of pressure [facility] Diastolic blood 2019-07-16 17:01:00 68 mm[Hg] Unive rsity of [facility] Heart rate 2019-07-16 17:01:00 102 /min Universi ty of [facility] Body temperature 2019-07-16 17:01:00 36.22 Leilani Univ ersity of [facility] Respiratory rate 2019-07-16 17:01:00 16 /min Univ ersity of [facility] Body height 2019-07-16 17:01:00 170.2 cm Universi ty of [facility] Body weight 2019-07-16 17:01:00 99.701 kg Universi ty of [facility] BMI 2019-07-16 17:01:00 34.43 kg/m2 Universi ty of [facility] Systolic blood 2019-02-25 15:10:00 128 mm[Hg] Univer sity of [facility] Diastolic blood 2019-02-25 15:10:00 72 mm[Hg] Unive rsity of [facility] Heart rate 2019-02-25 15:10:00 70 /min Universi ty of [facility] Body temperature 2019-02-25 15:10:00 36.28 Leilani Univ ersity of [facility] Respiratory rate 2019-02-25 15:10:00 16 /min Univ ersity of [facility] Body height 2019-02-25 15:10:00 170.2 cm Universi ty of [facility] Body weight 2019-02-25 15:10:00 87.601 kg Universi ty of [facility] BMI 2019-02-25 15:10:00 30.25 kg/m2 [facility] Systolic blood 2019-01-28 14:00:00 108 mm[Hg] Univer sity of pressure [facility] Diastolic blood 2019-01-28 14:00:00 68 mm[Hg] Unive rsity of [facility] Heart rate 2019-01-28 14:00:00 87 /min [facility] Body temperature 2019-01-28 14:00:00 36.67 Leilani [facility] Respiratory rate 2019-01-28 14:00:00 16 /min [facility] Body height 2019-01-28 14:00:00 170.2 cm [facility] Body weight 2019-01-28 14:00:00 92.987 kg [facility] BMI 2019-01-28 14:00:00 32.11 kg/m2 [facility] Procedures Procedure Date / Time Performing Clinician Source Performed CBC WITH DIFFERENTIAL 2019-08-17 10:27:00 Na Reaves [facility] HEPATITIS B SURFACE 2019-08-16 14:54:00 Haresh Hilary [facility] ANTIGEN [facility] GALV ONLY - SYPHILIS 2019-08-16 14:54:00 Hutson, [facility] IGG/IGM [facility] HB ABO GROUPING 2019-08-16 14:52:00 Hutson, [facility] o f [facility] RHO (D) IMMUNE GLOBULIN 2019-08-16 14:52:00 Na Reaves [facility] HOSPITAL ADMISSION 2019-08-16 06:01:00 Doctor Unassigned, No Uni versity of [facility] Branch POCT RAPID STREP SCREEN 2019-08-12 17:30:00 Oskar Bernard [facility] FOR GROUP A Medical Branch POCT URINALYSIS 2019-08-12 16:36:00 Cherie Nava [facility] POCT URINALYSIS GLUCOSE 2019-08-06 17:09:00 [facility] BIOPHYSICAL 2019-08-05 23:43:08 Ken Morales [facility] NOTICE OF PRIVACY 2019-08-05 21:13:07 Doctor Unassigned, No [facility] CONSENT/REFUSAL FOR 2019-08-05 21:12:47 Doctor Unassigned, No [facility] [place] DI[facility]NOSIS AND TREATMENT Name [facility] ASSIGNMENT OF BENEFITS 2019-08-05 21:12:31 Doctor Unassigned, No [facility] POCT URINALYSIS 2019-07-30 17:32:00 Cherie Nava [facility] POCT URINALYSIS 2019-02-25 15:11:00 Cherie Nava [facility] CBC WITH DIFFERENTIAL 2019-01-28 14:59:00 Cherie Nava [facility] HEPATITIS B SURFACE 2019-01-28 14:59:00 Cherie Nava [facility] ANTIGEN [facility] HCV ANTIBODY 2019-01-28 14:59:00 Cherie Nava [facility] WORKUP, BLOOD 2019-01-28 14:59:00 Cherie Nava [facility] HIV 1/2 AG-AB WITH 2019-01-28 14:59:00 Cherie Nava [facility] REFLEX [facility] GALV ONLY - SYPHILIS 2019-01-28 14:59:00 [facility] POCT URINALYSIS W/O 2019-01-28 14:05:00 [facility] SPECIFIC GRAVITY [facility] POCT TEST 2019-01-28 14:02:00 Cherie Nava [facility] NOTICE OF PRIVACY 2019-01-28 13:24:57 Doctor Unassigned, No Univ [facility] Encounters Start End Encounter Admission Attending Care Care Encounter Source Date/Time Date/Time Type Type Clinicians Facility Department ID 2019-12-31 2019-12-31 Outpatient R ELIJAH [facility] [id number] Univers 13:15:00 13:15:00 CHERIE [id number] armandoy o f [facility] [place] 2019-12-31 2019-12-31 Outpatient R AKINSIPE, [facility] [id number] Univers 13:15:00 13:15:00 CHERIE ity o [facility] 2019-12-18 2019-12-18 Outpatient R AKINSIPE, [facility] [id number] Univers 09:00:00 09:00:00 CHERIE [id number] ity [facility] 2019-10-17 2019-10-17 [facility] [id number] Univers 07:59:47 10:35:47 ne Visit [facility] C PLASTER PATTERNMAKER [id number] ity of REGIONAL [id number] [place] as MATERNAL [phone] [facility] & CHILD [address] [place] [address] 2019-10-17 2019-10-17 Outpatient R AKINSIPE, [facility] [id number] Univers 10:30:00 10:30:00 CHERIE [id number] itjohn o [facility] 2019-10-17 2019-10-17 Outpatient R AKINSIPE, [facility] [id number] Univers 10:30:00 10:30:00 CHERIE [facility] 2019-09-27 2019-09-27 [facility]ici [facility] [id number] Univers 11:57:47 14:10:04 ne Visit [facility] C PLASTER PATTERNMAKER [id number] ity of [facility] [id number] [place] as MATERNAL [phone] [facility] & CHILD [address] [place] [address] 2019-09-27 2019-09-27 Outpatient R AKINSIPE, [facility] [id number] Univers 13:15:00 13:15:00 CHERIE [id number] ity o [facility] 2019-09-27 2019-09-27 Outpatient R AKINSIPE, [facility] [id number] Univers 13:15:00 13:15:00 CHERIE ity o [facility] 2019-09-06 2019-09-06 Routine [facility] [id number] Univers 13:14:24 13:49:35 Cherie C PLASTER PATTERNMAKER [id number] ity of Visit REGIONAL [id number] [place] as MATERNAL [phone] [facility] ical & CHILD [address] [place] [address] 2019-09-06 2019-09-06 Outpatient R ELIJAH [facility] [id number] Univers 12:45:00 12:45:00 CHERIE ity o f [facility] 2019-08-16 2019-08-17 Hospital Pete HUNT [id number] Univers 06:56:00 20:54:00 Encounter Maurice CHAVEZ [id number] ity of s, [facility] [id number] [place] [phone] [facility] 063 [place] 2019-08-16 2019-08-16 Orders Doctor MARILEE 1.2.840.114 [id number] Univers 00:00:00 00:00:00 Only Unassigned, SCOTT [id number] ity of [place] [facility] [id number] [place] as [phone] [facility] 009 [place] 2019-08-12 2019-08-12 Routine [facility] 1.2.840.114 [id number] Univers 09:54:37 11:10:34 Roshunda R PLASTER PATTERNMAKER [id number] ity of Visit [facility] [id number] [place] as MATERNAL [phone] [facility] & CHILD [address] [place] [address] 2019-08-06 2019-08-06 [facility] 1.2.840.114 [id number] Univers 10:43:38 11:10:34 Roshunda R PLASTER PATTERNMAKER [id number] ity of Visit [facility] [id number] [place] as MATERNAL [phone] [facility] & CHILD [address] [place] [address] 2019-08-05 2019-08-05 Hospital Ken Morales [facility] 1.2.840.114 [id number] Univers 15:09:00 20:32:00 Encounter Leo Gutierrez [id number] ity of [place]2.7.2.686 [place] [id number] [facility] 083 [place] 2019-08-05 2019-08-05 Nurse Popeye, MARILEE 1.2.840.114 [id number] Univers 00:00:00 00:00:00 Triage Jumana CHAVEZ [id number] ity of HOSPITAL [id number] [place] [id number] [facility] 019 [place] 2019-07-30 2019-07-30 Routine Bernard, [facility] 1.2.840.114 [id number] Univers 10:49:06 11:37:23 Roshunda R PLASTER PATTERNMAKER [id number] ity of Visit [facility] [id number] [place] as MATERNAL [id number] [facility] ical & CHILD [address] [place] [address] 2019-07-16 2019-07-16 Routine Marco Antonio, [facility] 1.2.840.114 [id number] Univers 10:45:29 11:23:55 Roshunda R PLASTER PATTERNMAKER [id number] ity of Visit [facility] [id number] [place] as MATERNAL [phone] [facility] ical & CHILD [address] [place] [address] 2019-02-25 2019-02-25 Routine Elijah, [facility] [id number] Univers 09:52:05 10:47:27 Cherie C PLASTER PATTERNMAKER [id number] ity of Visit [facility] [id number] [place] as MATERNAL [phone] [facility] ical & CHILD [address] [place] [address] 2019-02-08 2019-02-08 [employer], [facility] UNIVERSIT 1.2.84 0.114 [id number] Univers 12:31:45 12:45:41 Visit Sergey Mcgovern [facility] [id number] ity of CLINICS [id number] [id number] [facility] 113 [place] 2019-02-08 2019-02-08 [employer], [facility] UNIVERSIT 1 .2.840.114 [id number] Univers 11:08:56 11:53:56 Visit Zenobia Palomino [facility] 350.1.1 3.10 ity of [facility] [id number] [place] [id number] [address] 2019-02-04 2019-02-04 Telephone Luis [facility] 1.2.840.114 [id number] Univers 00:00:00 00:00:00 Cherie C PLASTER PATTERNMAKER [id number] ity of REGIONAL [id number] [place] as MATERNAL [id number] Med ical & CHILD [address] [place] [address] 2019-01-31 2019-01-31 Telephone [facility] 1.2.840.114 [id number] Univers 00:00:00 00:00:00 Cherie C PLASTER PATTERNMAKER [id number] ity of [facility] [id number] [place] as MATERNAL [phone] [facility] ical & CHILD [address] [place] [address] 2019-01-31 2019-01-31 Telephone [facility] 1.2.840.114 [id number] Univers 00:00:00 00:00:00 Cherie C PLASTER PATTERNMAKER [id number] ity of [facility] [id number] [place] as MATERNAL [phone] [facility] ica & CHILD [address] [place] [address] 2019-01-30 2019-01-30 [employer], [facility] 1.2.840. 114 [id number] Univers 12:57:36 13:08:19 Visit Cherie Nava C PLASTER PATTERNMAKER 350.1.13. 10 ity of REGIONAL [id number] [place] as MATERNAL [phone] [facility] ical & CHILD [address] [place] [address] 2019-01-28 2019-01-28 Initial [facility] 1.2.194.110 [id number] Univers 08:36:22 09:56:43 Cherie C PLASTER PATTERNMAKER [id number] ity of Visit [facility] [id number] [place] as MATERNAL [phone] [facility] ical & CHILD [address] [place] [address] 2019-01-28 2019-01-28 Orders Doctor MARILEE 1.2.840.114 [id number] Univers 00:00:00 00:00:00 Only Unassigned, SCOTT [id number] ity of [place] [facility] 4.2.7.2.686 [facility] as [phone] [address] Results Test Description Test Time Test Comments Results Result Comments Source GALV ONLY - [place]IL[place] IGG/IGM 2019-08-17 16:46:00 Test Item Value Reference Range Interpretation Comme nts Syphilis IgG/IgM (test code = Non-reactive Non-reactive 27746-5) THAO (test code = THAO) Non-reactive - No serologic evidence of T. pallidum infection. Cannot exclude incubating or early syphilis. Submit a second specimen in 2-4 weeks if syphilis is clinically suspected. Equivocal - Further testing to follow. Reactive - Further testing to follow. Lab Interpretation (test code = Normal 68945-7) [facility] WITH [id number] 10:58:00 Test Item Value Reference Range Interpretation Comments WBC (test code = See_Comment H [Automated 8890-2) message] The sy stem which generated this result transmitted reference range : 4.30 - 11.10 10*3/?L. The reference range was not used to interpret this result as normal/abnormal . RBC (test code = See_Comment L [Automated 379-8) message] The sy stem which generated this [...] RDW-SD (test code = 42.7 fL 39-49.9 35056-8) RDW-CV (test code = 12.9 % 12-15.5 788-0) PLT (test code = See_Comment L [Automated 777-3) message] The sy stem which generated this result transmitted reference range : 166 - 358 10*3/ ?L. The reference r estefanía was not used to interpret this result as normal/abnormal . MPV (test code = 11.3 fL 9.5-12.9 61232-8) NRBC/100 WBC (test See_Comment [Automat ed code = [id number]) message] The system which generated this result transmitted reference range : 0.0 - 10.0 /100 WBCs. The refer ence range was not u sed to interpret th is result as normal/abnormal . NRBC x10^3 (test code <0.01 See_Comment [Auto mated = [id number]) message] The s ystem which generated this result transmitted reference range : 10*3/?L. The reference range was not used to interpret this result as normal/abnormal . GRAN MAT (NEUT) % 72.6 % (test code = 770-8) IMM GRAN % (test code 0.30 % = 6252708985) LYMPH % (test code = 19.9 % 736-9) MONO % (test code = 6.6 % 5905-5) EOS % (test code = 0.4 % 713-8) BASO % (test code = 0.2 % 706-2) GRAN MAT x10^3(ANC) 8.27 10*3/uL 1.88-7.09 H (test code = 3984741590) IMM GRAN x10^3 (test 0.03 10*3/uL 0-0.06 code = 8790484124) LYMPH x10^3 (test code 2.27 10*3/uL 1.32-3.29 = 731-0) MONO x10^3 (test code 0.75 10*3/uL 0.33-0.92 = 742-7) EOS x10^3 (test code = 0.04 10*3/uL 0.03-0.39 711-2) BASO x10^3 (test code <0.03 0.01-0.07 = 704-7) Lab Interpretation Abnormal (test code = 71844-0) [facility] IMMUNE [id number] 04:22:31 Test Item Value Reference Range Interpretation Comments RHIG CANDIDATE? No- see comment Patient i s not a (test code = candidate for R [facility]- 5055) Patient is Rh Positive.Perfor med at [facility] Laboratory Services - [facility] Blood [address] [place] [id number] Free: [phone] A No. [id number] [facility]atitis B Surface [id number] 16:35:00 Test Item Value Reference Range Interpretation Comments HBsAg Semi-Quantitative (test code = Negative Negative 5195-3) [facility] and Screen - ONCE [id number] 15:36:14 Test Item Value Reference Range Interpretation Comments ABO & RH (test code A POSITIVE Performe d at [facility] = 20) Laboratory Serv [facility] Blood [facility] [place] [id number] Free: [phone] A No. [id number] IAT (test code = Negative Performed a t [facility] 1185) Laboratory Serv [facility] [place] [id number] Free: [phone] A No. [id number] [facility] RAPID STREP SCREEN FOR GROUP [id number] 17:30:00 Test Item Value Reference Range Interpretation Comments POCT GP A STREP (test code = neg Negative - Negative 07382-5) [facility] URINALYSIS W SPECIFIC [id number] 16:36:00 Test Item Value Reference Range Interpretation [...] 3267) Lab Interpretation (test code = Abnormal 62160-2) [facility] GLUCOSE & PROTEIN 2019-08-06 17:09:00 Test Item Value Reference Range Interpretation Comments POCT U PROT (test code = 3259) neg Negative - Negative POCT U GLU (test code = 3256) neg Negative - Negative Lab Interpretation (test code = Normal 43627-0) [facility] BIOPHYSICAL [id number] 23:49:45Impression: 1. Single living intrauterine gestation with [...] single living intrauterine gestation with heart rate [id number] beats/min. Biophysical profile score 8/8. Breathing was [...] single living intrauterine gestation with heart rate [id number] beats/min.Biophysical profile score 8/8. Breathing was normal. Amniotic fluid indexmeasures 11.27 cm. Deepest pocket measures 4.25 cm. motion and tonenormal.Anterior placenta, grade 2. Cephalic presentation. Detailed anatomic surveywas not performed.IMPRESSIONImpression: 1. Single living intrauterine gestation with heart rate of 133 bpm.2. Biophysical profile score 8/8.[facility]CIFIC [id number] 17:32:00 Test Item Value Reference Range Interpretation [...] POCT U APPEAR (test code = 3267) [facility] URINALYSIS W SPECIFIC [id number] 17:32:00 Test Item Value Reference Range Interpretation [...] POCT U APPEAR (test code = 3267) [facility] URINALYSIS W SPECIFIC [id number] 15:11:00 Test Item Value Reference Range Interpretation [...] 3267) Lab Interpretation (test code = Abnormal 23184-5) [facility] URINALYSIS W SPECIFIC [id number] 15:11:00 Test Item Value Reference Range Interpretation [...] 3267) Lab Interpretation (test code = Abnormal 81521-7) [facility] URINALYSIS W SPECIFIC [id number] 15:11:00 Test Item Value Reference Range Interpretation [...] 3267) Lab Interpretation (test code = Abnormal 81679-4) [facility]GAL[facility] ONLY - SYPHILIS [id number] 14:49:00 Test Item Value Reference Range Interpretation Comments Syphilis IgG/IgM (test Non-reactive Non-reactive code = 14770-4) THAO (test code = THAO) Non-reactive - No serologic evidence of T. pallidum infection. Cannot exclude incubating or early syphilis. Submit a second specimen in 2-4 weeks if syphilis is clinically suspected.Equivocal - Further testing to follow.Reactive - Further testing to follow. Lab Interpretation (test Normal code = 76179-1) [facility] 1/2 AG-AB WITH [id number] 10:26:00 Test Item Value Reference Range Interpretation Comments HIV Negative Negative Semi-quantitative (test code = 71247-6) THAO (test code = Non-reactive for HIV-1 THAO) antigen and HIV-1/HIV-2 antibodies.?No laboratory evidence of HIV infection.?Repeat in 2-4 weeks if acute HIV infection is suspected. [facility]CV [id number] 05:02:00 Test Item Value Reference Range Interpretation Comments HCV Semi-Quantitative (test code = 51158-8) [facility]HEPATITIS B SURFACE [id number] 04:45:00 Test Item Value Reference Range Interpretation Comments HBsAg Semi-Quantitative (test code = 5195-3) [facility]anoPRENATAL WORKUP, BLOOD [id number] 04:15:41 Test Item Value Reference Range Interpretation Comments ABO & RH (test code A POSITIVE Performe d at [facility] = 20) Laboratory Serv [facility] Blood [facility] [address] [facility] s [id number] Free: [phone] A No. [id number] IAT (test code = Negative Performed a t [facility] 1185) Laboratory [facility] [address] [facility] [address] [id number] Free: [phone] A No. [id number] [facility]anoCB WITH [id number] 03:07:00 Test Item Value Reference Range Interpretation Comments WBC (test code = See_Comment [Automated 8173-2) message] The sy stem which generated this result transmitted reference range : 4.30 - 11.10 10*3/?L. The reference range was not used to interpret this result as normal/abnormal . RBC (test code = See_Comment [Automated 051-8) message] The sy stem which generated this [...] (test code = 37.5 fL 39-49.9 L 93931-0) RDW-CV (test code = 11.5 % 12-15.5 L 788-0) PLT (test code = See_Comment [Automated 127-3) message] The sy stem which generated this result transmitted reference range : 166 - 358 10*3/ ?L. The reference r estefanía was not used to interpret this result as normal/abnormal . MPV (test code = 11.7 fL 9.5-12.9 49231-1) NRBC/100 WBC (test See_Comment [Automat ed code = 8582283101) message] The system which generated this result transmitted reference range : 0.0 - 10.0 /100 WBCs. The refer ence range was not u sed to interpret th is result as normal/abnormal . NRBC x10^3 (test code <0.01 See_Comment [Auto mated = [id number]) message] The s ystem which generated this result transmitted reference range : 10*3/?L. The reference range was not used to interpret this result as normal/abnormal . GRAN MAT (NEUT) % 76.3 % (test code = 770-8) IMM GRAN % (test code 0.10 % = 1740153680) LYMPH % (test code = 18.2 % 736-9) MONO % (test code = 4.3 % 5905-5) EOS % (test code = 0.7 % 713-8) BASO % (test code = 0.4 % 706-2) GRAN MAT x10^3(ANC) 6.94 10*3/uL 1.88-7.09 (test code = 1096781894) IMM GRAN x10^3 (test <0.03 0-0.06 code = 2155562666) LYMPH x10^3 (test code 1.66 10*3/uL 1.32-3.29 = 731-0) MONO x10^3 (test code 0.39 10*3/uL 0.33-0.92 = 742-7) EOS x10^3 (test code = 0.06 10*3/uL 0.03-0.39 711-2) BASO x10^3 (test code 0.04 10*3/uL 0.01-0.07 = 704-7) Lab Interpretation Abnormal (test code = 10132-2) [facility] URINALYSIS W/O SPECIFIC [id number] 14:06:00 Test Item Value Reference Range Interpretation Comments POCT PH U (test code = 3254) 6 mg/dl 5-8 POCT U LEUK EST (test code = 1+ Negative - Negative 3262) POCT U NIT (test code = 3262) Pos Negative - Negative POCT U PROT (test code = 3259) 2+ Negative - Negative POCT U GLU (test code = 3256) Neg Negative - Negative POCT U KETONE (test code = 3258) Small Negative - Negative POCT U BLD (test code = 3257) Neg Negative - Negative [facility]PO[facility] [id number] 14:02:00 Test Item Value Reference Range Interpretation Comments POCT PREG (test code = 1605) Positive On board controls acceptable with C Yes Line (test code = 3574) POCT PREG LOT # (test code = 3575) POCT PREG TEST DATE (test code = 3576) [facility]
[2021-12-28] MEDS ORDERED: miSOPROStoL 100 MCG TAB VAG ONE (15:00)
[2021-12-28] MEDS ORDERED: miSOPROStoL 100 MCG TAB ONE (15:04)
--- NOTE | 2021-12-28 15:55 | RAD REPORT ---
EXAM DESCRIPTION: RAD - Abdomen Single View - 12/28/2021 3:48 pm CLINICAL HISTORY: to see if baby is head down Pain COMPARISON: Abdomen Exam Limited dated 04/15/2019; OB Limited dated 09/23/2016 FINDINGS: position is cephalic. spine is to maternal right.
[2021-12-28 16:00] LABS: Absolute Lymphocytes (CBC) 1.8 K/uL (0.7-4.9); Hematocrit 37.5 % (36.0-45.0); Lymphocytes % 19.7 % (15.3-44.8); MCV 86.7 fL (80-100); MPV 9.7 fL (7.6-11.3); RBC Red Blood Cell Count 4.33 M/uL (3.86-4.86)
[2021-12-28 17:01] VITALS: BMI 38.2
[2021-12-28] MEDS: Ringers Lactate 1,000 ML IV SCH ×2 (18:46→21:40)
[2021-12-28] MEDS ORDERED: ZOLPIDEM TARTRATE 10 MG TABLET PO PRN (19:18)
[2021-12-28 22:30] LABS: Urine Appearance Clear (Clear); Urine Bilirubin Negative (Negative); Urine Blood Negative (Negative); Urine Color Yellow (Yellow); Urine Glucose Negative (Negative); Urine Protein Negative (Negative); Urine Urobilinogen 0.2 mg/dL (0.2-1.0)
[2021-12-28 23:01] LABS: Urine Bacteria 20-50 /HPF (<20); Urine RBC NONE SEEN /HPF (NONE SEEN)
[2021-12-28] MEDS ORDERED: ZOLPIDEM TARTRATE 5 MG TABLET ONE (23:03)
[2021-12-28] MEDS ORDERED: OXYTOCIN/LR 0 UNIT/0 ML BAG IV ONE (23:36)
[2021-12-28] MEDS ORDERED: OXYTOCIN/LR 20 UNIT/1,000 ML BAG IV ONE (23:40)
[2021-12-28] MEDS ORDERED: OXYTOCIN/LR 20 UNIT/1,000 ML BAG IV SCH (23:45)
[2021-12-28] MEDS ORDERED: LIDOCAINE 1% 20 ML MDV ONE (23:48)
[2021-12-28] MEDS ORDERED: DIPHENHYDRAMINE 25 MG TAB/CAP PO PRN (23:56)
[2021-12-28] MEDS ORDERED: BISACODYL 10 MG RECTAL SUPP PR PRN (23:56)
[2021-12-28] MEDS ORDERED: ACETAMINOPHEN 500 MG TAB PO PRN (23:56)
[2021-12-28] MEDS ORDERED: DOCUSATE NA/SENNA CONC 1 TAB PO PRN (23:56)
[2021-12-29 00:19] LABS: RPR (Rapid Plasma Reagin) NON-REACT (NON-REACT)
[2021-12-29] MEDS: Oxycodone HCl/Acetaminophen 1 TAB TAB PO PRN ×4 (01:05→23:54)
[2021-12-29] MEDS: IBUPROFEN 600 MG TAB PO PRN (06:36)
--- NOTE | 2021-12-29 06:57 | PREOPHP ---
Date of Admission: 12/28/2021 History Of Present Illness: A 31-year-old 3, para 2, at 39 weeks 2 days for Cytotec inductio n, which she has her last and was quite successful. Full counseling concerning procedure. Family History: Father with hypertension. Mother with stroke. Sister with stomach ulcers. Father with cancer, site unknown. No serious illnesses. Past Surgical History: No previous surgeries. Allergies: NO ALLERGIES. Medications: No medications prior to admission other than vitamins and iron. Social History: Does not smoke. Physical Examination: HEENT: Clear. Pupils equal, round, reactive to light and accommodation. Conjunctivae well perfused . No oral, lingual, or buccal lesions. Chest and Lungs: Clear. Heart: Without murmurs, thrills, heaves, or rubs. Breasts: Without masses. Abdomen: Term size. Extremities: Clear without edema, cyanosis, or clubbing. The baby I am reasonably sure is vertex, is well applied at -1 station, but the cervix is extremely p osterior and difficult to get to. In the office she was 1.5 cm, 50%. I think she is the same here. We will get an ultrasound just to confirm the baby is vertex. Cytotec 50 mcg inserted. She said la st time all it took to put her in labor. In 6 to 8 hours, if she needs another application, we will probably only do 25 mcg instead of 50. Full labor talk given. Anticipate delivery sometime tomorrow . PHU/KAREN Voice ID: [id number]
--- NOTE | 2021-12-29 10:10 | OP ---
Surgeon: Francisco Ackerman MD Procedure In Detail: A 31-year-old, 3, para 2, 39 weeks plus gestation for induction, 50 mcg of Cytotec inserted around 0330 this afternoon. The patient at that time was -1 station, but extrem johny posterior 1.5 cm, 50% effaced. She had basically no pain until shortly before delivery. At that point, she was checked noted to be 3 cm and was asking for an epidural. Within 2 minutes, the patie nt was complete on the perineum, delivered precipitously of a term 7-pound plus male , Apgars 9 and 9. Placenta delivered spontaneously. She was noted to have a small first-degree laceration. L ocal anesthetic was performed after prepping and draping. A 2-0 chromic was used to close the first- degree laceration, approximately 6 stitches. Fundal pressure was applied. Estimated blood loss less than 250 cc. The patient tolerated all procedures well. Final Diagnoses: Term intrauterine , Cytotec for labor induction, precipitous vaginal deliv gracie. KIAC/MODL Voice ID: [id number] Report ID: [id number]
[2021-12-30 01:40] VITALS: TEMP 98.7
[2021-12-30] MEDS: IBUPROFEN 600 MG TAB PO PRN (04:33)
[2021-12-30 05:10] VITALS: BP 110/62
[2021-12-31 04:48] LABS: HBsAG Nonreactive (Nonreactive)
== END 2021-12-30 09:25 | disposition home or self-care (01) | DRG 807 ==
LOC: 2ND-WC 14:51
PROVIDERS: ADMIT Specialist; ATTEND Specialist
PROC: 10E0XZZ Delivery of Products of Conception, External Approach (ICD-10-PCS; principal; 2021-12-28)
PROC: 0HQ9XZZ Repair Perineum Skin, External Approach (ICD-10-PCS; 2021-12-28)
PROC: 3E0DXGC Introduction of Other Therapeutic Substance into Mouth and Pharynx, External Approach (ICD-10-PCS; 2021-12-28)
DX: O70.0 First degree perineal laceration during delivery (principal); Z37.0 Single live birth; Z3A.39 39 weeks gestation of pregnancy
CPT/HCPCS: 36415; 74018; 81003; 81015; 85025; 86592; 86850; 86900; 86901; 87086; 87088; 87340; J2210; J2590; J7120; U0003